=== PATIENT | male | born 1955 | race Hispanic/Latino ===

== ENCOUNTER 2017-07-21 18:06 | Inpatient (IN) | payer OTHER, SELFPAY ==
[2017-07-21] MEDS ORDERED: Ondansetron ODT 8 MG TAB ONE (18:44)
[2017-07-21 19:01] LABS: #Lymphocytes 1.3 thou/uL (1.20-3.40); #Monocytes 0.6 thou/uL (0.11-0.59); #Neutrophils 14.7 thou/uL (1.40-6.50); %Basophils 0.2 % (0.0-1.0); %Eosinophils 0.1 % (0.0-10.0); %Lymphocytes 7.8 % (21.0-51.0); %Monocytes 3.7 % (0.0-10.0); %Neutrophils 88.3 % (42.0-75.0); Hemoglobin 16.1 g/dL (14.0-18.0); Mean Corpuscular HGB CONC 35.7 g/dL (32.0-36.0); Mean Corpuscular Hemoglobin 32.3 pg (27.0-31.0); Mean Corpuscular Volume 90.4 fl (80.0-94.0); Mean Platelet Volume 9.6 fL (7.4-10.4); Platelet Count 139 thou/uL (130-400); RBC Distribution Width 11.4 % (11.5-14.5); Red Blood Cell (RBC) Count 4.97 mill/uL (4.70-6.10); White Blood Cell (WBC) Count 16.6 thou/uL (4.8-10.8)
--- NOTE | 2017-07-21 19:13 | RAD ---
CHEST ONE VIEW: HISTORY: Weakness. Vomiting. FINDINGS: Heart size and mediastinum are within normal limits. Lungs are clear of infiltrates. There is some linear scar atelectasis in the left base. IMPRESSION: No acute findings. POS: [facility]
[2017-07-21 19:24] LABS: ALT (SGPT) 13 U/L (8-55); AST (SGOT) 13 U/L (5-34); Albumin 4.6 g/dL (3.4-4.8); Alkaline Phosphatase 114 U/L (40-150); Anion Gap 19 mmol/L (10-20); BUN (Urea Nitrogen) 18 mg/dL (8.4-25.7); Bilirubin, Total 0.9 mg/dL (0.2-1.2); CK (CPK) 52 U/L (30-200); Calc. Creatinine Clearance 0 mL/min (70-130); Calcium 10.4 mg/dL (7.8-10.44); Carbon Dioxide 26 mmol/L (23-31); Chloride 95 mmol/L (98-107); Estimated GFR-MDRD 66; Globulin 3.3 g/dL (2.4-3.5); Glucose 421 mg/dL (80-115); Lipase 9 U/L (8-78); Potassium 4.2 mmol/L (3.5-5.1); Protein, Total 7.9 g/dL (5.8-8.1); Sodium 136 mmol/L (136-145)
[2017-07-21 19:26] LABS: Bilirubin Negative (Negative); Blood, Urine Negative (Negative); Clarity CLEAR (Clear); Glucose, Urine (Dipstick) >=1000 mg/dL (Negative); Leukocyte Negative (Negative); Nitrite Negative (Negative); Protein, Urine (Dipstick) Negative (Neg-Trace); Specific Gravity, Urine 1.037 (1.002-1.036); Urobilinogen 0.2 mg/dL (0.2-1.0)
[2017-07-21 19:27] LABS: CKMB 1.8 ng/mL (0-6.6); Troponin I Less than 0.010 ng/mL (< 0.028)
[2017-07-21 19:27] LABS: Base Excess-Venous 0.4 mmol/L (0 (+/- 2.5)); Bicarbonate (HCO3v) 26.4 mmol/L (1.0-85.0); CO2 Tension (PvCO2) 46.3 mmHg (41.0-51.0); Calcium, Ionized 1.09 mmol/L (1.12-1.32); Hemoglobin - Calc 16.1 g/dL (12.0-18.0); O2 Tension (PvO2) 28.7 mmHg (35.0-45.0); T. Carbon Dioxide 27.8 mmol/L (1.0-85.0); pH (Venous) 7.365 (7.35-7.45); vO2 Saturation-calc 51.5 % (94-98)
[2017-07-21] MEDS ORDERED: Insulin Regular 300 UNITS/3 ML VIAL ONE (19:31)
[2017-07-21] MEDS ORDERED: Morphine 4 MG/ML VIAL ONE (20:18)
[2017-07-21] MEDS ORDERED: Ondansetron HCl/PF 4 MG/2 ML Vial IVP PRN (22:33)
[2017-07-21] MEDS ORDERED: Ondansetron ODT 4 MG TAB SL PRN (22:33)
[2017-07-21] MEDS ORDERED: Sodium Chloride 0.9% 1,000 ML IV SCH ×2 (22:33→23:00)
[2017-07-21 22:46] VITALS: BMI 256270.4
[2017-07-21] MEDS ORDERED: hydrALAZINE 20 MG/ML VIAL SLOW IVP PRN (22:48)
[2017-07-21] MEDS ORDERED: Dextrose 50% Abboject 50 ML SYRINGE SLOW IVP PRN (22:48)
[2017-07-21] MEDS ORDERED: Insulin Regular 300 UNITS/3 ML VIAL SC PRN (22:48)
[2017-07-21] MEDS ORDERED: Dextrose 5% in Water 1,000 ML IV PRN (22:48)
[2017-07-21] MEDS ORDERED: Acetaminophen 325 MG TAB PO PRN (22:50)
[2017-07-21 22:53] LABS: Lactic Acid 2.2 mmol/L (0.5-2.2)
[2017-07-21] MEDS: HYDROcodone/Acetaminophen 5/325 mg Tablet PO PRN (22:57)
[2017-07-21] MEDS ORDERED: NPH, Human Insulin Isophane 300 UNIT/3 ML VIAL SC SCH (23:15)
[2017-07-21] MEDS: Sodium Chloride 0.9% 1,000 ML IV SCH (23:22)
[2017-07-21 23:28] LABS: Magnesium 1.7 mg/dL (1.6-2.6); Phosphorus 4.6 mg/dL (2.3-4.7)
[2017-07-22] MEDS ORDERED: Senokot 8.6 MG TAB PO PRN (01:03)
[2017-07-22] MEDS ORDERED: Calcium Carbonate 500 MG ChewTAB PO PRN (01:03)
[2017-07-22] MEDS ORDERED: Ondansetron HCl/PF 4 MG/2 ML Vial IVP PRN (01:03)
[2017-07-22] MEDS ORDERED: Mag-Al 1200 mg/1200 mg/30 ML UDCUP PO PRN (01:03)
[2017-07-22] MEDS ORDERED: hydrALAZINE 20 MG/ML VIAL SLOW IVP PRN (01:04)
--- NOTE | 2017-07-22 01:48 | HP ---
DATE OF ADMISSION: 07/21/2017 The patient was seen and examined on 07/21/2017. CHIEF COMPLAINT: Nausea, vomiting, and abdominal discomfort. HISTORY OF PRESENT ILLNESS: Patient is a 62-year-old male from [place] with diabetes mellitus type 2, currently out of insulin, presented to the hospital with nausea, vomiting, and abdominal discomfort that has been ongoing for the last 24 hours. He also felt generally weak and had some epigastric dis comfort that was more or less constant. He has been out of insulin for almost a week. The pain was 10/10 without any aggravating or relieving factor. He vomited a total of 4 times. No diarrhea, cons tipation, weight loss reported. He felt generally weak. In the emergency room, his blood sugar was 435 with lactic acid of 4.0. He received IV fluids in the emergency room. Ketones was added to his blood work that was 1.96. PAST MEDICAL HISTORY: 1. Diabetes mellitus type 2. 2. Hypertension. 3. Hyperlipidemia. PAST SURGICAL HISTORY: 1. Hernia repair. 2. Tonsillectomy. ALLERGIES: No known drug allergies. CURRENT HOME MEDICATIONS: Aspirin, enalapril/HCTZ, metformin, and pravastatin. The patient is curre ntly out of NPH insulin. He usually takes 30 units daily. SOCIAL HISTORY: Patient currently lives at home. No smoking, alcohol, no drug use. He is FULL CODE , makes his own decisions with the help of family. He is Swazi speaking only. The history was obt ained with the help of asl interpreter. FAMILY HISTORY: Negative for premature coronary artery disease, hypertension, and diabetes mellitus type 2. REVIEW OF SYSTEMS: The following complete review of systems was negative, unless otherwise mentioned in the HPI or below: Constitutional: Weight loss or gain, ability to conduct usual activities. Sk in: Rash, itching. Eyes: Double vision, pain. ENT/Mouth: Nose bleeding, neck stiffness, pain, te nderness. Cardiovascular: Palpitations, dyspnea on exertion, orthopnea. Respiratory: Shortness of breath, wheezing, cough, hemoptysis, fever or night sweats. Gastrointestinal: Poor appetite, abdom inal pain, heartburn, nausea, vomiting, constipation, or diarrhea. Genitourinary: Urgency, frequenc y, dysuria, nocturia. Musculoskeletal: Pain, swelling. Neurologic/Psychiatric: Anxiety, depressio n. Allergy/Immunologic: Skin rash, bleeding tendency. PHYSICAL EXAMINATION: VITAL SIGNS: In the emergency room showed temperature 97.4, respirations 20, pulse 76, blood pressur e 148/78 with O2 saturation 98% on room air. GENERAL: A 62-year-old male in no apparent distress. Abdominal pain, nausea, vomiting has been impr oving after IV fluids. HEENT: Head, atraumatic, normocephalic, sclerae are anicteric. Dry mucous membranes. No oral lesio n. NECK: Supple, no JVD appreciated. No carotid bruit. LUNGS: Clear to auscultation bilaterally. No wheezing, rales, or rhonchi. HEART: S1, S2 present. Regular rate and rhythm. No murmur, rubs, or gallops appreciated. ABDOMEN: Soft, mild tenderness over the epigastric region, no rebound, guarding, no costovertebral a ngle tenderness. EXTREMITIES: No edema or calf tenderness. NEUROLOGIC: Grossly nonfocal, moves all four extremities. PSYCHIATRY: Alert, awake, oriented x3. SKIN: Warm and dry. LYMPH NODES: No palpable lymph nodes in the neck. PERIPHERAL VASCULAR: Radial pulses palpable bilaterally. MUSCULOSKELETAL: No joint swelling or tenderness. LABORATORY AND X-RAY FINDINGS: WBC 16.6 with 88.3% neutrophils. Ketones 1.96. Urine specific gravity was 1.037 with ketones and glucosuria. Lactic acid 4.0 with blood glucose 435. BUN 18, creatinine 1.13. Chest x-ray by my review was negative for infiltrate or edema. EKG by my review showed sinus rhythm. Troponins were negative. IMPRESSION: 1. Nausea, vomiting with abdominal discomfort probably secondary to mild diabetic ketoacidosis. Ple ase note that patient is out of insulin for a week or so. We will continue IV fluids. We will start him on NPH 10 units twice a day. We will start him on full liquid diet and advance as tolerated. W e will repeat ketones and electrolytes in a.m. Please note that his lipase was normal. LFTs were no rmal. His abdominal examination was benign. 2. Diabetes mellitus type 2. We will hold metformin for now due to lactic acidosis. We will contin ue insulin sliding scale. 3. Metabolic acidosis secondary to elevated lactate and ketones. 4. Leukocytosis, unlikely to be infectious. 5. Dehydration. 6. Chronic kidney disease stage 2. 7. Hypertension. Will hold enalapril/HCTZ for now due to dehydration. We will add p.r.n. antihyper tensives. His last blood pressure was 112/55. 8. Hyperlipidemia. We will resume statins. 9. Disposition: Probably in 1-2 days based on his progress. Plan of care was discussed with the patient in detail. He stated understanding. PPIs will be added.
[2017-07-22] MEDS: HYDROcodone/Acetaminophen 5/325 mg Tablet PO PRN ×2 (05:39→11:31)
[2017-07-22] MEDS: Sodium Chloride 0.9% 1,000 ML IV SCH ×3 (05:39→20:24)
[2017-07-22 05:58] LABS: Albumin 3.6 g/dL (3.4-4.8); Anion Gap 8 mmol/L (10-20); BUN (Urea Nitrogen) 15 mg/dL (8.4-25.7); BUN/Creatinine Ratio 19.74; Calc. Creatinine Clearance 110 mL/min (70-130); Calcium 8.6 mg/dL (7.8-10.44); Carbon Dioxide 30 mmol/L (23-31); Chloride 105 mmol/L (98-107); Estimated GFR-MDRD Greater than 90; Glucose 204 mg/dL (80-115); Phosphorus 3.7 mg/dL (2.3-4.7); Potassium 4.1 mmol/L (3.5-5.1); Sodium 139 mmol/L (136-145)
[2017-07-22] MEDS: Insulin Regular 300 UNITS/3 ML VIAL SC PRN ×2 (06:34→17:17)
[2017-07-22] MEDS ORDERED: Loperamide HCl 2 MG CAP PO PRN (07:38)
[2017-07-22] MEDS ORDERED: Artificial Tears 18 DROP/0.9 ML EA EYE PRN (07:38)
[2017-07-22] MEDS ORDERED: Sodium Chloride 0.65% Nasal 44 ML BOT EA NARE PRN (07:38)
[2017-07-22] MEDS ORDERED: Chloraseptic Spray 180 ml Bottle PO PRN (07:38)
[2017-07-22] MEDS ORDERED: Temazepam 15 MG CAP PO PRN (07:38)
[2017-07-22] MEDS ORDERED: Diabetic Tussin 200 MG/10 ML UDCUP PO PRN (07:38)
[2017-07-22] MEDS ORDERED: Milk Of Magnesia 30 ML UDCUP PO PRN (07:38)
[2017-07-22] MEDS ORDERED: Loratadine 10 MG TAB PO PRN (07:38)
[2017-07-22] MEDS ORDERED: Eucerin (Mineral Oil/Petrolatum,White) 30 gm Jar TOP PRN (07:38)
[2017-07-22] MEDS ORDERED: Sodium Chloride 0.9% 1,000 ML IV SCH (07:45)
[2017-07-22] MEDS: Ondansetron ODT 4 MG TAB PO PRN (08:39)
[2017-07-22] MEDS ORDERED: NPH, Human Insulin Isophane 300 UNIT/3 ML VIAL SC SCH (09:00)
[2017-07-22] MEDS ORDERED: Famotidine 20 MG TAB PO SCH (09:00)
[2017-07-22] MEDS ORDERED: Aspirin 81 mg Enteric Coated Tablet PO SCH (09:00)
[2017-07-22] MEDS: Lisinopril 5 MG TAB PO SCH ×2 (09:01→20:19)
[2017-07-22] MEDS: Pravastatin Sodium 20 MG TAB PO SCH ×2 (09:03→20:19)
--- NOTE | 2017-07-22 09:48 | PDOC.PN ---
- Subjective Encounter Start Date: 07/22/17 Encounter Start Time: 09:10 -: old records requested/rev Patient seen and examined for hyperglycemia, c/o epigastric abdominal pain, no diarrhoea, no vomiting No overnight events - Objective Resuscitation Status: Resuscitation Status FULL:Full Resuscitation MAR Reviewed: Yes Vital Signs & Weight: Vital Signs (12 hours) Temp Pulse Resp BP BP Pulse Ox 07/22/17 09:01 95 148/77 H 07/22/17 07:31 98.5 F 95 18 148/77 H 95 07/22/17 05:51 98.2 F 98 16 112/66 94 L 07/22/17 00:16 98.2 F 107 H 18 112/55 L 94 L 07/21/17 23:56 98.1 F 96 18 94 L I&O: 07/21/17 07/22/17 07/23/17 06:59 06:59 06:59 Intake Total 1396 Balance 1396 Result Diagrams: 07/21/17 18:56 07/22/17 05:30 Additional Labs: Accuchecks 07/22/17 07/22/17 07/21/17 04:15 01:42 23:09 POC Glucose 224 H 267 H 297 H Phys Exam - Physical Examination Constitutional: NAD HEENT: PERRLA, moist MMs, sclera anicteric Neck: no JVD, supple Respiratory: no wheezing, no rales, no rhonchi Cardiovascular: RRR, no significant murmur, no rub Gastrointestinal: soft, no distention, positive bowel sounds epigastric abdominal discomfort Musculoskeletal: no edema, pulses present Neurological: non-focal, normal sensation, moves all 4 limbs Psychiatric: normal affect, A&O x 3 Skin: no rash, normal turgor Dx/Plan (1) Epigastric abdominal pain Code(s): R10.13 - EPIGASTRIC PAIN Status: Acute (2) Dehydration Code(s): E86.0 - DEHYDRATION Status: Acute (3) Hyperglycemia due to type 2 diabetes mellitus Code(s): E11.65 - TYPE 2 DIABETES MELLITUS WITH HYPERGLYCEMIA Status: Acute (4) Ketosis due to diabetes Code(s): E13.10 - OTH DIABETES MELLITUS WITH KETOACIDOSIS WITHOUT COMA Status : Resolved (5) Lactic acidosis Code(s): E87.2 - ACIDOSIS Status: Resolved (6) Leucocytosis Code(s): D72.829 - ELEVATED WHITE BLOOD CELL COUNT, UNSPECIFIED Status: Acute (7) Dyslipidemia Code(s): E78.5 - HYPERLIPIDEMIA, UNSPECIFIED Status: Chronic (8) Hypertension Code(s): I10 - ESSENTIAL (PRIMARY) HYPERTENSION Status: Chronic - Plan cont current plan of care, plan discussed w/ family * will get US RUQ * increase insulin 70/30, 15 unit SC BID * check HbA1c, lipid profile, TSH and labs tomorrow * reduce IVF * today will control diabetes and blood pressure * medication reviewed as below * symptomatic treatment * discussed with family bedside. Review of Systems - Review of Systems Constitutional: negative: fever, chills, sweats, weakness, malaise, other Eyes: negative: Pain, Vision Change, Conjunctivae Inflammation, Eyelid Inflammation, Redness, Other ENT: negative: Ear Pain, Ear Discharge, Nose Pain, Nose Discharge, Nose Congestion, Mouth Pain, Mouth Swelling, Throat Pain, Throat Swelling, Other Respiratory: negative: Cough, Dry, Shortness of Breath, Hemoptysis, SOB with Excertion, Pleuritic Pain, Sputum, Wheezing Cardiovascular: negative: chest pain, palpitations, orthopnea, paroxysmal nocturnal dyspnea, edema, light headedness, other Gastrointestinal: Abdominal Pain. negative: Nausea, Vomiting, Diarrhea, Constipation, Melena, Hematochezia, Other Genitourinary: negative: Dysuria, Frequency, Incontinence, Hematuria, Retention , Other Musculoskeletal: negative: Neck Pain, Shoulder Pain, Arm Pain, Back Pain, Hand Pain, Leg Pain, Foot Pain, Other Skin: negative: Rash, Lesions, Yoel, Bruising, Other - Medications/Allergies Allergies/Adverse Reactions: Allergies Allergy/AdvReac Type Severity Reaction Status Date / Time No Known Allergies Allergy Unverified 07/21/17 22:12 Medications: Current Medications Acetaminophen (Tylenol) 650 mg PO Q4H PRN PRN Reason: Headache/Fever or Mild Pain Al Hydroxide/Mg Hydroxide (Maalox) 30 ml PO Q6H PRN PRN Reason: Heartburn or Indigestion Artificial Tears (Tears Naturale) 0 drop EA EYE PRN PRN PRN Reason: Dry Eyes Aspirin (Ecotrin) 162 mg PO DAILY [facility] Last Admin: 07/22/17 09:02 Dose: 162 mg Calcium Carbonate (Tums) 1,000 mg PO Q4H PRN PRN Reason: Heartburn or Indigestion Dextrose/Water (Dextrose 50%) 25 gm SLOW IVP PRN PRN PRN Reason: Hypoglycemia Glucagon (Glucagon) 1 mg IM PRN PRN PRN Reason: Hypoglycemia Guaifenesin (Robitussin Sf) 200 mg PO Q4H PRN PRN Reason: Cough Hydralazine HCl (Apresoline) 10 mg SLOW IVP Q4H PRN PRN Reason: SBP Greater Than 180 Dextrose/Water (D5w) 1,000 mls @ 0 mls/hr IV .Q0M PRN; As Directed PRN Reason: Hypoglycemia Sodium Chloride (Normal Saline 0.9%) 1,000 mls @ 75 mls/hr IV .[id number] ON LICENSE OF [facility] Insulin Human NPH (Humulin N) 15 unit SC BID ON LICENSE OF [facility] Insulin Human Regular (Humulin R) 0 units SC .BEDTIME SLIDING SC PRN PRN Reason: Bedtime Correctional Scale Last Admin: 07/22/17 01:42 Dose: 3 unit Insulin Human Regular (Humulin R) 0 units SC .MODERATE SLIDING SC PRN PRN Reason: Moderate Correctional Scale Last Admin: 07/22/17 06:34 Dose: 4 unit Lisinopril (Zestril) 5 mg PO BID ON LICENSE OF [facility] Last Admin: 07/22/17 09:01 Dose: 5 mg Loperamide HCl (Imodium) 2 mg PO PRN PRN PRN Reason: Diarrhea/Loose Stools Loratadine (Claritin) 10 mg PO DAILYPRN PRN PRN Reason: Sinus Symptoms Magnesium Hydroxide (Milk Of Magnesium) 30 ml PO DAILYPRN PRN PRN Reason: Constipation Mineral Oil/White Petrolatum (Eucerin Cream) 0 gm TOP BIDPRN PRN PRN Reason: Dry Skin Ondansetron HCl (Zofran Odt) 4 mg PO Q6H PRN PRN Reason: Nausea/Vomiting Last Admin: 07/22/17 08:39 Dose: 4 mg Ondansetron HCl (Zofran) 4 mg IVP Q6H PRN PRN Reason: Nausea/Vomiting Pantoprazole Sodium (Protonix) 40 mg PO DAILY ON LICENSE OF [facility] Last Admin: 07/22/17 09:01 Dose: 40 mg Phenol (Chloraseptic [place] 180 Ml Bot) 0 ml PO PRN PRN PRN Reason: Sore Throat Pravastatin Sodium (Pravachol) 10 mg PO BID ON LICENSE OF [facility] Last Admin: 07/22/17 09:03 Dose: 10 mg Senna (Senokot) 2 tab PO HSPRN PRN PRN Reason: Constipation Sodium Chloride (Flush - Normal Saline) 10 ml IVF Q12HR ON LICENSE OF [facility] Last Admin: 07/22/17 09:04 Dose: 10 ml Sodium Chloride (Flush - Normal Saline) 10 ml IVF PRN PRN PRN Reason: Saline Flush Sodium Chloride ([place] Nasal [place] 0.65%) 0 ml EA NARE QIDPRN PRN PRN Reason: Nasal Congestion Temazepam (Restoril) 15 mg PO HSPRN PRN PRN Reason: Insomnia
[2017-07-22] MEDS ORDERED: Promethazine HCl 25 MG/ML VIAL IM PRN (11:46)
[2017-07-22] MEDS ORDERED: cefTRIAXone\\ROCEPHIN 1 GM in Sodium Chloride 0.9% 100 ML IVPB SCH (12:00)
[2017-07-22] MEDS ORDERED: Promethazine HCl 12.5 MG in Sodium Chloride 0.9% 50 ML IVPB PRN (12:33)
[2017-07-22 12:37] LABS: Band 12 % (5-11); Eosinophils 1 % (0-10); Hemoglobin 15.8 g/dL (14.0-18.0); Lymphocytes 5 % (21-51); MDiff Complete? YES; Mean Corpuscular HGB CONC 34.6 g/dL (32.0-36.0); Mean Corpuscular Hemoglobin 31.5 pg (27.0-31.0); Mean Corpuscular Volume 91.1 fl (80.0-94.0); Mean Platelet Volume 9.1 fL (7.4-10.4); Monocytes 3 % (0-10); Neutrophil 79 % (42-75); PLT Morphology Comment Appears Adequate; Platelet Count 148 thou/uL (130-400); RBC Distribution Width 11.5 % (11.5-14.5); Red Blood Cell (RBC) Count 5.01 mill/uL (4.70-6.10); White Blood Cell (WBC) Count 13.7 thou/uL (4.8-10.8)
[2017-07-22] MEDS: NPH, Human Insulin Isophane 300 UNIT/3 ML VIAL SC SCH ×2 (12:38→20:21)
[2017-07-22] MEDS: Morphine 4 MG/ML VIAL SLOW IVP PRN ×2 (12:39→21:28)
[2017-07-22 12:48] LABS: ALT (SGPT) 10 U/L (8-55); AST (SGOT) 13 U/L (5-34); Albumin 4.1 g/dL (3.4-4.8); Alkaline Phosphatase 89 U/L (40-150); Anion Gap 17 mmol/L (10-20); BUN (Urea Nitrogen) 15 mg/dL (8.4-25.7); Calc. Creatinine Clearance 108 mL/min (70-130); Calcium 9.3 mg/dL (7.8-10.44); Carbon Dioxide 24 mmol/L (23-31); Chloride 101 mmol/L (98-107); Estimated GFR-MDRD Greater than 90; Glucose 208 mg/dL (80-115); Potassium 3.9 mmol/L (3.5-5.1); Protein, Total 7.1 g/dL (5.8-8.1); Sodium 138 mmol/L (136-145)
--- NOTE | 2017-07-22 13:17 | ULT ---
RIGHT UPPER QUADRANT ULTRASOUND: INDICATIONS: Epigastric abdominal pain. COMPARISON: None. FINDINGS: There is a small amount of free fluid within the abdomen. The visualized aspects of the liver are un remarkable. Some mild gallbladder sludge is seen within the gallbladder. No sonographic Castillo sign is reported. The common bile duct measures 2 mm. The pancreas is obscured. The right kidney measu res 10.9 x 5 x 5.7 cm. No focal renal lesion or hydronephrosis is evident. IMPRESSION: 1. Mild ascites. 2. Mild gallbladder sludge. POS: [facility]
[2017-07-22] MEDS: cefTRIAXone\\ROCEPHIN 1 GM, Syringe 0.4 ML in Sterile Water 9.6 ML SLOW IVP SCH (14:36)
[2017-07-22] MEDS ORDERED: ISOVUE-370 76%-LOCM 1 ML ONE (15:00)
--- NOTE | 2017-07-22 18:11 | CT ---
CT ABDOMEN AND PELVIS WITH IV CONTRAST: 07/22/17 HISTORY: Epigastric pain with nausea and vomiting since yesterday. Bandemia. FINDINGS: There are tiny bilateral pleural effusions with associated passive atelectasis. There is a punctate n odular density at the posteromedial right lung base as well as in the right middle lobe which measure s less than 4 mm. Vascular calcifications seen in the abdominal aorta and iliac arteries. The liver, spleen, pancreas, bilateral adrenal glands, kidneys, and urinary bladder demonstrate a nor mal CT appearance. There are dilated loops of proximal small bowel measuring up to 3.3 cm in diameter which are fluid fi lled with air fluid levels present. The findings are suggestive of a high grade partial small bowel o bstruction as there are more normal and decompressed loops of small bowel further distally. There is mild mesenteric edema present at the level of the dilated loops of small bowel. No free intraperitoneal gas is present. There is area of layering increased densities seen involving some of the loops of small bowel, and some of the small bowel loops there is question of mild bowel w all thickening, however, this may be related to debris and particulate matter within the small bowel given this appearance. Small amount of free fluid is seen in the pelvis and adjacent to the liver and spleen. Vascular calcifications in the abdominal aorta involving the iliac arteries. IMPRESSION: 1. Evidence for high grade partial small bowel obstruction. 2. Small amount of free fluid in the abdomen and pelvis. 3. Tiny bilateral pleural effusions and passive atelectasis. 4. Above findings discussed with Asher, nurse in charge of the patient's hospital care on the [facility] floor on 07/22/17 at 1602 hours. POS: [facility]
[2017-07-22] MEDS: Pantoprazole 40 MG VIAL IVP SCH (20:22)
[2017-07-22 23:55] LABS: Troponin I 0.016 ng/mL (< 0.028)
[2017-07-23] MEDS: Morphine 4 MG/ML VIAL SLOW IVP PRN ×3 (03:28→12:57)
[2017-07-23] MEDS: Sodium Chloride 0.9% 1,000 ML IV SCH ×3 (05:10→20:51)
[2017-07-23 05:35] LABS: #Lymphocytes 1.1 thou/uL (1.20-3.40); #Monocytes 0.9 thou/uL (0.11-0.59); %Basophils 0.2 % (0.0-1.0); %Eosinophils 0.3 % (0.0-10.0); %Lymphocytes 13.6 % (21.0-51.0); %Monocytes 10.9 % (0.0-10.0); %Neutrophils 74.9 % (42.0-75.0); Hemoglobin 15.9 g/dL (14.0-18.0); Mean Corpuscular HGB CONC 34.4 g/dL (32.0-36.0); Mean Corpuscular Hemoglobin 31.8 pg (27.0-31.0); Mean Corpuscular Volume 92.4 fl (80.0-94.0); Mean Platelet Volume 9.5 fL (7.4-10.4); Platelet Count 148 thou/uL (130-400); RBC Distribution Width 11.7 % (11.5-14.5)
[2017-07-23 05:45] LABS: Hemoglobin A1c 9.9 % (4.0-6.0)
[2017-07-23 05:51] LABS: ALT (SGPT) 8 U/L (8-55); AST (SGOT) 11 U/L (5-34); Albumin 3.8 g/dL (3.4-4.8); Alkaline Phosphatase 68 U/L (40-150); Anion Gap 13 mmol/L (10-20); BUN (Urea Nitrogen) 17 mg/dL (8.4-25.7); Bilirubin, Total 0.8 mg/dL (0.2-1.2); Calc. Creatinine Clearance 108 mL/min (70-130); Calcium 8.5 mg/dL (7.8-10.44); Carbon Dioxide 26 mmol/L (23-31); Cardiac Risk 4.1 (Less than 4.5); Chloride 104 mmol/L (98-107); Cholesterol 122 mg/dl (< 200 Desired); Estimated GFR-MDRD Greater than 90; Globulin 2.8 g/dL (2.4-3.5); Glucose 223 mg/dL (80-115); HDL Cholesterol 30 mg/dL (>60 Neg Risk); LDL Cholesterol, Calculated 76 mg/dL; Potassium 3.7 mmol/L (3.5-5.1); Protein, Total 6.6 g/dL (5.8-8.1); Sodium 139 mmol/L (136-145); Triglycerides 78 mg/dL (Less than 150)
[2017-07-23] MEDS: Pantoprazole 40 MG VIAL IVP SCH ×2 (07:50→20:46)
[2017-07-23] MEDS: NPH, Human Insulin Isophane 300 UNIT/3 ML VIAL SC SCH ×2 (07:50→20:53)
--- NOTE | 2017-07-23 10:35 | PDOC.PN ---
- Subjective Encounter Start Date: 07/23/17 Encounter Start Time: 09:50 pt still has worsening of abdominal pain, he has transient relief in pain after NG tube yesterday, but this morning he is worse, no fever family bedside, he does not pass gas and he dose not have BM Patient seen and examined for SBO. No overnight events - Objective Resuscitation Status: Resuscitation Status FULL:Full Resuscitation MAR Reviewed: Yes Vital Signs & Weight: Vital Signs (12 hours) Temp Pulse Resp BP BP Pulse Ox 07/23/17 08:00 98.0 F 123 H 18 154/90 H 94 L 07/23/17 04:22 98.6 F 117 H 20 148/93 H 94 L Weight Weight 169 lb 1 oz I&O: 07/22/17 07/23/17 07/24/17 06:59 06:59 06:59 Intake Total 1396 1220 Output Total 3550 Balance 1396 -2330 Result Diagrams: 07/23/17 04:14 07/23/17 04:14 Additional Labs: Accuchecks 07/23/17 07/22/17 07/22/17 04:13 20:27 16:24 POC Glucose 219 H 237 H 236 H 07/22/17 12:09 POC Glucose 187 H Radiology Reviewed by me: Yes (small bowel xray, abdomen xray, CT abdomen) Phys Exam - Physical Examination Constitutional: NAD in pain HEENT: PERRLA, moist MMs, sclera anicteric NG tube+ Neck: no JVD, supple Respiratory: no wheezing, no rales, no rhonchi Cardiovascular: RRR, no significant murmur, no rub Gastrointestinal: soft distended, no bowel sound, diffuse discomfort Musculoskeletal: no edema, pulses present Neurological: non-focal, normal sensation, moves all 4 limbs Lymphatic: no nodes Psychiatric: normal affect, A&O x 3 Skin: no rash, normal turgor Dx/Plan (1) Partial small bowel obstruction Status: Acute (2) Epigastric abdominal pain Code(s): R10.13 - EPIGASTRIC PAIN Status: Acute (3) Dehydration Code(s): E86.0 - DEHYDRATION Status: Resolved (4) Hyperglycemia due to type 2 diabetes mellitus Code(s): E11.65 - TYPE 2 DIABETES MELLITUS WITH HYPERGLYCEMIA Status: Acute (5) Ketosis due to diabetes Code(s): E13.10 - OTH DIABETES MELLITUS WITH KETOACIDOSIS WITHOUT COMA Status : Resolved (6) Lactic acidosis Code(s): E87.2 - ACIDOSIS Status: Resolved (7) Leucocytosis Code(s): D72.829 - ELEVATED WHITE BLOOD CELL COUNT, UNSPECIFIED Status: Resolved (8) Dyslipidemia Code(s): E78.5 - HYPERLIPIDEMIA, UNSPECIFIED Status: Chronic (9) Hypertension Code(s): I10 - ESSENTIAL (PRIMARY) HYPERTENSION Status: Chronic - Plan cont current plan of care, plan discussed w/ family, continue antibiotics * seems like conservative treatment is not helping yet * will consult general surgery * will get xray abdomen and small bowel xray * he had previous hernia repair, sos suspecting adhesion related partial SBO * continue IVF * continue empiric rocephin and levaquin as his symptoms started after eating arana, he may has associated enteritis * continue protonix and continue IVF * medication reviewed as below * symptomatic treatment * discussed with family with medical certification specialist. Review of Systems - Review of Systems Constitutional: negative: fever, chills, sweats, weakness, malaise, other Eyes: negative: Pain, Vision Change, Conjunctivae Inflammation, Eyelid Inflammation, Redness, Other ENT: negative: Ear Pain, Ear Discharge, Nose Pain, Nose Discharge, Nose Congestion, Mouth Pain, Mouth Swelling, Throat Pain, Throat Swelling, Other Respiratory: negative: Cough, Dry, Shortness of Breath, Hemoptysis, SOB with Excertion, Pleuritic Pain, Sputum, Wheezing Cardiovascular: negative: chest pain, palpitations, orthopnea, paroxysmal nocturnal dyspnea, edema, light headedness, other Gastrointestinal: Nausea, Abdominal Pain. negative: Vomiting, Diarrhea, Constipation, Melena, Hematochezia, Other Genitourinary: negative: Dysuria, Frequency, Incontinence, Hematuria, Retention , Other Musculoskeletal: negative: Neck Pain, Shoulder Pain, Arm Pain, Back Pain, Hand Pain, Leg Pain, Foot Pain, Other Skin: negative: Rash, Lesions, Yoel, Bruising, Other - Medications/Allergies Allergies/Adverse Reactions: Allergies Allergy/AdvReac Type Severity Reaction Status Date / Time No Known Allergies Allergy Unverified 07/21/17 22:12 Medications: Current Medications Acetaminophen (Tylenol) 650 mg PO Q4H PRN PRN Reason: Headache/Fever or Mild Pain Hydrocodone Bitart/Acetaminophen ([place] 5/325) 1 tab PO Q4H PRN PRN Reason: Moderate to Severe Pain (6-10) Last Admin: 07/22/17 11:31 Dose: 1 tab Al Hydroxide/Mg Hydroxide (Maalox) 30 ml PO Q6H PRN PRN Reason: Heartburn or Indigestion Artificial Tears (Tears Naturale) 0 drop EA EYE PRN PRN PRN Reason: Dry Eyes Calcium Carbonate (Tums) 1,000 mg PO Q4H PRN PRN Reason: Heartburn or Indigestion Dextrose/Water (Dextrose 50%) 25 gm SLOW IVP PRN PRN PRN Reason: Hypoglycemia Glucagon (Glucagon) 1 mg IM PRN PRN PRN Reason: Hypoglycemia Guaifenesin (Robitussin Sf) 200 mg PO Q4H PRN PRN Reason: Cough Hydralazine HCl (Apresoline) 10 mg SLOW IVP Q4H PRN PRN Reason: SBP Greater Than 180 Dextrose/Water (D5w) 1,000 mls @ 0 mls/hr IV .Q0M PRN; As Directed PRN Reason: Hypoglycemia Levofloxacin 500 mg/ Device 100 mls @ 100 mls/hr IVPB 1300 [facility] Last Admin: 07/22/17 13:08 Dose: 100 mls Promethazine HCl 12.5 mg/ (Sodium Chloride) 50.5 mls @ 151.5 mls/hr IVPB Q6H PRN PRN Reason: Nausea/Vomiting Ceftriaxone Sodium 1 gm/ (Syringe 0.4 ml/ Sterile Water) 10 mls @ 120 mls/hr SLOW IVP 1400 [facility] Last Admin: 07/22/17 14:36 Dose: 10 mls Sodium Chloride (Normal Saline 0.9%) 1,000 mls @ 125 mls/hr IV .Q8H [facility] Last Admin: 07/23/17 05:10 Dose: 1,000 mls Insulin Human NPH (Humulin N) 15 unit SC BID [facility] Last Admin: 07/23/17 07:50 Dose: 15 unit Insulin Human Regular (Humulin R) 0 units SC .BEDTIME SLIDING SC PRN PRN Reason: Bedtime Correctional Scale Last Admin: 07/22/17 01:42 Dose: 3 unit Insulin Human Regular (Humulin R) 0 units SC .MODERATE SLIDING SC PRN PRN Reason: Moderate Correctional Scale Last Admin: 07/22/17 17:17 Dose: 4 unit Lisinopril (Zestril) 5 mg PO BID [facility] Last Admin: 07/22/17 20:19 Dose: 5 mg Loratadine (Claritin) 10 mg PO DAILYPRN PRN PRN Reason: Sinus Symptoms Metoprolol Tartrate (Lopressor) 25 mg PO BID [facility] Mineral Oil/White Petrolatum (Eucerin Cream) 0 gm TOP BIDPRN PRN PRN Reason: Dry Skin Morphine Sulfate (Morphine) 4 mg SLOW IVP Q4H PRN PRN Reason: Severe Pain (7-10) Last Admin: 07/23/17 07:55 Dose: 4 mg Ondansetron HCl (Zofran Odt) 4 mg PO Q6H PRN PRN Reason: Nausea/Vomiting Last Admin: 07/22/17 08:39 Dose: 4 mg Ondansetron HCl (Zofran) 4 mg IVP Q6H PRN PRN Reason: Nausea/Vomiting Last Admin: 07/22/17 12:47 Dose: 4 mg Pantoprazole Sodium (Protonix) 40 mg IVP Q12HR [facility] Last Admin: 07/23/17 07:50 Dose: 40 mg Phenol (Chloraseptic [place] 180 Ml Bot) 0 ml PO PRN PRN PRN Reason: Sore Throat Pravastatin Sodium (Pravachol) 10 mg PO BID [facility] Last Admin: 07/22/17 20:19 Dose: 10 mg Promethazine HCl (Phenergan) 12.5 mg IM Q6H PRN PRN Reason: Nausea/Vomiting Senna (Senokot) 2 tab PO HSPRN PRN PRN Reason: Constipation Sodium Chloride (Flush - Normal Saline) 10 ml IVF Q12HR [facility] Last Admin: 07/22/17 20:22 Dose: 10 ml Sodium Chloride (Flush - Normal Saline) 10 ml IVF PRN PRN PRN Reason: Saline Flush Sodium Chloride ([place] Nasal [place] 0.65%) 0 ml EA NARE QIDPRN PRN PRN Reason: Nasal Congestion Temazepam (Restoril) 15 mg PO HSPRN PRN PRN Reason: Insomnia
--- NOTE | 2017-07-23 11:46 | RAD ---
KUB SERIES: Indication: Abdominal pain, SBO (small bowel obstruction). FINDINGS: There is a coiled enteric catheter in the left upper quadrant. There is ectatic air filled small waylon l of the left upper quadrant. There is moderate retained fecal material in the colon. Upper abdomen i s partially excluded from view. IMPRESSION: 1. Ectatic air filled small bowel of the left upper quadrant. 2. Moderate retained fecal material in the colon. POS: [facility]
[2017-07-23] MEDS: Lisinopril 5 MG TAB PO SCH ×2 (12:58→20:46)
[2017-07-23] MEDS: Metoprolol Tartrate 25 MG TAB PO SCH ×2 (12:58→20:50)
--- NOTE | 2017-07-23 13:38 | RAD ---
SMALL BOWEL FOLLOW-THROUGH: Date: 07/23/17 CLINICAL HISTORY: Small bowel obstruction, abdominal pain. FINDINGS: There is dilatation of small bowel, contrast opacified, measuring greater than 5.0 cm. Contrast does traverse to the colon at approximately 2 hours. Retained material of the colon is present. Ther e is excreted contrast media within the urinary bladder. IMPRESSION: Dilated small bowel. Contrast does traverse to the level of the colon. This may relate to a low grade obstruction. POS: [facility]
[2017-07-23] MEDS: Pravastatin Sodium 20 MG TAB PO SCH ×2 (13:40→20:50)
[2017-07-23] MEDS: Insulin Regular 300 UNITS/3 ML VIAL SC PRN ×2 (13:43→17:54)
[2017-07-23] MEDS ORDERED: MD-Gastroview 120 ML BOT ONE (15:20)
[2017-07-23] MEDS: cefTRIAXone\\ROCEPHIN 1 GM, Syringe 0.4 ML in Sterile Water 9.6 ML SLOW IVP SCH (15:38)
--- NOTE | 2017-07-23 21:10 | CON ---
DATE OF CONSULTATION: 07/24/2017 DATE OF CONSULTATION: Possible partial small-bowel obstruction. REQUESTING PHYSICIAN: Dr. Radha Roman. HISTORY OF PRESENT ILLNESS: Patient is a 62-year-old man who presented to the emergency dep artment with 24 hours of nausea, vomiting, and abdominal pain. Patient underwent evaluation, examina tion and on his CAT scan, it was appeared that he may have partial small-bowel obstruction, at which time we were asked to evaluate the patient. The patient had a small bowel follow-through ordered and completed prior to my examination. The patient also had a NG tube placed in the emergency departmen t on his day of admission and I was seeing him on hospital day #2. At the time of my examination, th e patient had an NG tube in place that was putting out nonbilious fluids. He stated that his nausea and vomiting had resolved. He had had a very small bowel movement and passed some gas, but felt much better today than he did yesterday. ALLERGIES: None. CURRENT MEDICATIONS: Aspirin, hydrochlorothiazide, metformin, and pravastatin. Patient is also on N PH insulin, which he states that he is out of. PAST MEDICAL HISTORY: 1. Type 2 diabetes. 2. Hypertension. 3. Hyperlipidemia. PAST SURGICAL HISTORY: Hernia repair and tonsillectomy. SOCIAL HISTORY: Patient currently lives at home. He denies drug, alcohol, or tobacco use. FAMILY MEDICAL HISTORY: Coronary artery disease, hypertension, and diabetes. REVIEW OF SYSTEMS: A 10-point review of systems was negative, unless otherwise stated. PHYSICAL EXAMINATION: VITAL SIGNS: Temperature is 97.8, heart rate 101, blood pressure 107/69, respirations 18, oxygen sat uration is 94% on room air. GENERAL: Patient is resting comfortably in bed. He is alert, oriented, and appropriate. The patien t is Occitan-speaking only, we utilized the nurse as a toy packer. HEENT: Head is normocephalic, atraumatic. Eyes: Extraocular motion intact. PERRLA bilaterally. E ars are atraumatic without discharge. Nose are atraumatic without discharge. Oropharynx clear. NECK: Nontender. Trachea is midline. No JVD. CHEST: Clear to auscultation with good inspiratory and expiratory effort. HEART: Regular rate and rhythm. ABDOMEN: Has very minimal lower quadrant pain both right and left side. Hypoactive bowel sounds. EXTREMITIES: Neurovascularly intact x4. BACK: Nontender with no CVA tenderness. LABORATORY FINDINGS: White blood cell count 8.0, hemoglobin 15.9, hematocrit 46.2, platelets 148. S odium 139, potassium 3.7, chloride 104, CO2 of 26, BUN 17, creatinine 0.78, glucose 223. LFTs are u nremarkable. RADIOGRAPHIC FINDINGS: 1. CT of the abdomen and pelvis with IV contrast shows evidence for high-grade partial small-bowel o bstruction. 2. Small amount of free fluid in the abdomen and pelvis. 3. Tiny bilateral pleural effusions with passive atelectasis, small bowel follow-through shows dilat ed small bowel contrast does traverse to the level of the colon. This may relate to a low-grade obst ruction. ASSESSMENT: 1. Abdominal pain. 2. Nausea, vomiting, resolved. 3. Probable resolving low grade small-bowel obstruction. PLAN: Plan will be to discontinue his nasogastric tube and start clear liquids. Continue pain contr ol. Peripherally nonnarcotic pain control, pulmonary toilet, gastritis, mechanical DVT prophylaxis, and diabetes management per the primary team. We will reevaluate the patient in the morning sooner a s needed. The evaluation, examination, labs, and rads were discussed with Dr. Waters at the time of d ictation.
[2017-07-24] MEDS: Sodium Chloride 0.9% 1,000 ML IV SCH (05:48)
[2017-07-24] MEDS ORDERED: Bisacodyl 10 MG SUPP PR PRN (06:54)
[2017-07-24] MEDS: Pravastatin Sodium 20 MG TAB PO SCH ×2 (08:54→20:40)
[2017-07-24] MEDS: Lisinopril 5 MG TAB PO SCH ×2 (08:54→20:40)
[2017-07-24] MEDS: Polyethylene Glycol 3350 17 GM Packet PO SCH (08:56)
[2017-07-24] MEDS: Pantoprazole 40 MG VIAL IVP SCH ×2 (08:56→20:39)
[2017-07-24] MEDS: Metoprolol Tartrate 25 MG TAB PO SCH ×2 (08:56→20:39)
[2017-07-24] MEDS: NPH, Human Insulin Isophane 300 UNIT/3 ML VIAL SC SCH ×2 (08:57→21:45)
--- NOTE | 2017-07-24 09:51 | PDOC.PN ---
- Subjective Encounter Start Date: 07/24/17 Encounter Start Time: 09:20 pt had BM today, he feels better today, no fever Patient seen and examined for SBO. No new complaints. No overnight events - Objective Resuscitation Status: Resuscitation Status FULL:Full Resuscitation MAR Reviewed: Yes Vital Signs & Weight: Vital Signs (12 hours) Temp Pulse Resp BP BP Pulse Ox 07/24/17 08:54 107 H 151/81 H 07/24/17 07:45 98.4 F 107 H 18 94 L 07/24/17 04:00 98.5 F 100 20 142/79 H 94 L 07/24/17 00:00 99.1 F 97 20 112/76 94 L Weight Weight 169 lb 1.513 oz I&O: 07/23/17 07/24/17 07/25/17 06:59 06:59 06:59 Intake Total 1220 3350 Output Total 3550 200 Balance -2330 3150 Result Diagrams: 07/23/17 04:14 07/23/17 04:14 Additional Labs: Accuchecks 07/24/17 07/23/17 07/23/17 04:30 20:13 17:06 POC Glucose 169 H 230 H 214 H 07/23/17 12:56 POC Glucose 293 H Phys Exam - Physical Examination Constitutional: NAD HEENT: PERRLA, moist MMs, sclera anicteric Neck: no JVD, supple Respiratory: no wheezing, no rales, no rhonchi Cardiovascular: RRR, no significant murmur, no rub Gastrointestinal: soft, non-tender, no distention, positive bowel sounds Musculoskeletal: no edema, pulses present Neurological: non-focal, normal sensation, moves all 4 limbs Psychiatric: normal affect, A&O x 3 Skin: no rash, normal turgor Dx/Plan (1) Partial small bowel obstruction Status: Acute (2) Epigastric abdominal pain Code(s): R10.13 - EPIGASTRIC PAIN Status: Acute (3) Dehydration Code(s): E86.0 - DEHYDRATION Status: Resolved (4) Hyperglycemia due to type 2 diabetes mellitus Code(s): E11.65 - TYPE 2 DIABETES MELLITUS WITH HYPERGLYCEMIA Status: Acute (5) Ketosis due to diabetes Code(s): E13.10 - OTH DIABETES MELLITUS WITH KETOACIDOSIS WITHOUT COMA Status : Resolved (6) Lactic acidosis Code(s): E87.2 - ACIDOSIS Status: Resolved (7) Leucocytosis Code(s): D72.829 - ELEVATED WHITE BLOOD CELL COUNT, UNSPECIFIED Status: Resolved (8) Dyslipidemia Code(s): E78.5 - HYPERLIPIDEMIA, UNSPECIFIED Status: Chronic (9) Hypertension Code(s): I10 - ESSENTIAL (PRIMARY) HYPERTENSION Status: Chronic - Plan cont current plan of care, plan discussed w/ family, continue antibiotics * DC Rocephin * continue levaquin * today adjust dose of insulin * today advance diet as tolerated * add miralax * he has guiac positive, but Hb stable, suspected haemorroid, still advised to get outpt colonoscopy * expecting discharge tomorrow. * Dc IVF Review of Systems - Review of Systems Constitutional: negative: fever, chills, sweats, weakness, malaise, other Eyes: negative: Pain, Vision Change, Conjunctivae Inflammation, Eyelid Inflammation, Redness, Other ENT: negative: Ear Pain, Ear Discharge, Nose Pain, Nose Discharge, Nose Congestion, Mouth Pain, Mouth Swelling, Throat Pain, Throat Swelling, Other Respiratory: negative: Cough, Dry, Shortness of Breath, Hemoptysis, SOB with Excertion, Pleuritic Pain, Sputum, Wheezing Cardiovascular: negative: chest pain, palpitations, orthopnea, paroxysmal nocturnal dyspnea, edema, light headedness, other Gastrointestinal: Hematochezia. negative: Nausea, Vomiting, Abdominal Pain, Diarrhea, Constipation, Melena, Other Genitourinary: negative: Dysuria, Frequency, Incontinence, Hematuria, Retention , Other Musculoskeletal: negative: Neck Pain, Shoulder Pain, Arm Pain, Back Pain, Hand Pain, Leg Pain, Foot Pain, Other Skin: negative: Rash, Lesions, Yoel, Bruising, Other Neurological: negative: Weakness, Numbness, Incoordination, Change in Speech, Confusion, Seizures, Other - Medications/Allergies Allergies/Adverse Reactions: Allergies Allergy/AdvReac Type Severity Reaction Status Date / Time No Known Allergies Allergy Unverified 07/21/17 22:12 Medications: Current Medications Acetaminophen (Tylenol) 650 mg PO Q4H PRN PRN Reason: Headache/Fever or Mild Pain Hydrocodone Bitart/Acetaminophen ([place] 5/325) 1 tab PO Q4H PRN PRN Reason: Moderate to Severe Pain (6-10) Last Admin: 07/22/17 11:31 Dose: 1 tab Al Hydroxide/Mg Hydroxide (Maalox) 30 ml PO Q6H PRN PRN Reason: Heartburn or Indigestion Artificial Tears (Tears Naturale) 0 drop EA EYE PRN PRN PRN Reason: Dry Eyes Bisacodyl (Dulcolax) 10 mg FL Q8H PRN PRN Reason: Constipation Calcium Carbonate (Tums) 1,000 mg PO Q4H PRN PRN Reason: Heartburn or Indigestion Dextrose/Water (Dextrose 50%) 25 gm SLOW IVP PRN PRN PRN Reason: Hypoglycemia Glucagon (Glucagon) 1 mg IM PRN PRN PRN Reason: Hypoglycemia Guaifenesin (Robitussin Sf) 200 mg PO Q4H PRN PRN Reason: Cough Hydralazine HCl (Apresoline) 10 mg SLOW IVP Q4H PRN PRN Reason: SBP Greater Than 180 Dextrose/Water (D5w) 1,000 mls @ 0 mls/hr IV .Q0M PRN; As Directed PRN Reason: Hypoglycemia Levofloxacin 500 mg/ Device 100 mls @ 100 mls/hr IVPB 1300 [facility] Last Admin: 07/23/17 12:58 Dose: 100 mls Promethazine HCl 12.5 mg/ (Sodium Chloride) 50.5 mls @ 151.5 mls/hr IVPB Q6H PRN PRN Reason: Nausea/Vomiting Sodium Chloride (Normal Saline 0.9%) 1,000 mls @ 125 mls/hr IV .Q8H [facility] Last Admin: 07/24/17 05:48 Dose: 1,000 mls Insulin Human NPH (Humulin N) 15 unit SC BID [facility] Last Admin: 07/24/17 08:57 Dose: 15 unit Insulin Human Regular (Humulin R) 0 units SC .BEDTIME SLIDING SC PRN PRN Reason: Bedtime Correctional Scale Last Admin: 07/22/17 01:42 Dose: 3 unit Insulin Human Regular (Humulin R) 0 units SC .MODERATE SLIDING SC PRN PRN Reason: Moderate Correctional Scale Last Admin: 07/23/17 17:54 Dose: 4 unit Lisinopril (Zestril) 5 mg PO BID [facility] Last Admin: 07/24/17 08:54 Dose: 5 mg Loratadine (Claritin) 10 mg PO DAILYPRN PRN PRN Reason: Sinus Symptoms Metoprolol Tartrate (Lopressor) 25 mg PO BID [facility] Last Admin: 07/24/17 08:56 Dose: 25 mg Mineral Oil/White Petrolatum (Eucerin Cream) 0 gm TOP BIDPRN PRN PRN Reason: Dry Skin Morphine Sulfate (Morphine) 4 mg SLOW IVP Q4H PRN PRN Reason: Severe Pain (7-10) Last Admin: 07/23/17 12:57 Dose: 4 mg Ondansetron HCl (Zofran Odt) 4 mg PO Q6H PRN PRN Reason: Nausea/Vomiting Last Admin: 07/22/17 08:39 Dose: 4 mg Ondansetron HCl (Zofran) 4 mg IVP Q6H PRN PRN Reason: Nausea/Vomiting Last Admin: 07/22/17 12:47 Dose: 4 mg Pantoprazole Sodium (Protonix) 40 mg IVP Q12HR [facility] Last Admin: 07/24/17 08:56 Dose: 40 mg Phenol (Chloraseptic [place] 180 Ml Bot) 0 ml PO PRN PRN PRN Reason: Sore Throat Polyethylene Glycol (Miralax) 17 gm PO DAILY [facility] Last Admin: 07/24/17 08:56 Dose: 17 gm Pravastatin Sodium (Pravachol) 10 mg PO BID [facility] Last Admin: 07/24/17 08:54 Dose: 10 mg Promethazine HCl (Phenergan) 12.5 mg IM Q6H PRN PRN Reason: Nausea/Vomiting Senna (Senokot) 2 tab PO HSPRN PRN PRN Reason: Constipation Sodium Chloride (Flush - Normal Saline) 10 ml IVF Q12HR [facility] Last Admin: 07/24/17 09:07 Dose: 10 ml Sodium Chloride (Flush - Normal Saline) 10 ml IVF PRN PRN PRN Reason: Saline Flush Sodium Chloride ([place] Nasal [place] 0.65%) 0 ml EA NARE QIDPRN PRN PRN Reason: Nasal Congestion Temazepam (Restoril) 15 mg PO HSPRN PRN PRN Reason: Insomnia
[2017-07-24 10:33] LABS: #Eosinphils 0.1 thou/uL (0.0-0.7); #Lymphocytes 1.3 thou/uL (1.20-3.40); #Monocytes 0.9 thou/uL (0.11-0.59); #Neutrophils 6.8 thou/uL (1.40-6.50); %Basophils 0.1 % (0.0-1.0); %Eosinophils 0.6 % (0.0-10.0); %Lymphocytes 14.3 % (21.0-51.0); %Monocytes 9.7 % (0.0-10.0); %Neutrophils 75.3 % (42.0-75.0); Hemoglobin 14.5 g/dL (14.0-18.0); Mean Corpuscular HGB CONC 33.9 g/dL (32.0-36.0); Mean Corpuscular Hemoglobin 31.7 pg (27.0-31.0); Mean Corpuscular Volume 93.5 fl (80.0-94.0); Mean Platelet Volume 9.5 fL (7.4-10.4); Platelet Count 140 thou/uL (130-400); RBC Distribution Width 11.4 % (11.5-14.5); Red Blood Cell (RBC) Count 4.57 mill/uL (4.70-6.10)
[2017-07-24] MEDS: Insulin Regular 300 UNITS/3 ML VIAL SC PRN ×2 (12:04→16:37)
[2017-07-24] MEDS: Ondansetron ODT 4 MG TAB PO PRN (15:59)
[2017-07-24] MEDS ORDERED: Metoclopramide HCl 10 MG/2 ML VIAL IVP SCH (16:15)
[2017-07-24 17:09] LABS: ALT (SGPT) 8 U/L (8-55); AST (SGOT) 11 U/L (5-34); Albumin 3.7 g/dL (3.4-4.8); Alkaline Phosphatase 64 U/L (40-150); Anion Gap 6 mmol/L (10-20); BUN (Urea Nitrogen) 17 mg/dL (8.4-25.7); Bilirubin, Total 1.2 mg/dL (0.2-1.2); Calc. Creatinine Clearance 109 mL/min (70-130); Calcium 8.7 mg/dL (7.8-10.44); Carbon Dioxide 29 mmol/L (23-31); Chloride 102 mmol/L (98-107); Estimated GFR-MDRD Greater than 90; Glucose 233 mg/dL (80-115); Lipase 9 U/L (8-78); Magnesium 1.7 mg/dL (1.6-2.6); Potassium 3.3 mmol/L (3.5-5.1); Protein, Total 6.7 g/dL (5.8-8.1); Sodium 134 mmol/L (136-145)
--- NOTE | 2017-07-24 17:09 | RAD ---
SINGLE VIEW OF THE ABDOMEN 07/24/17 COMPARISON: 07/23/17 HISTORY: Followup. Small bowel obstruction. FINDINGS: An anterior view of the abdomen shows air filled loops of small bowel again seen in the mid abdomen. The small bowel follow through contrast is seen throughout the colon suggesting that the obstruction is incomplete as the enteric contrast is passed into the colon. The amount of contrast seen on the pr ior examination is significantly less in volume and a lot of the contrast was likely defecated from t he patient. IMPRESSION: Dilated loops of small bowel may be secondary to ileus or partial small bowel obstruction. POS: [facility]
[2017-07-24 17:13] LABS: Phosphorus 1.3 mg/dL (2.3-4.7)
[2017-07-24] MEDS: HYDROcodone/Acetaminophen 5/325 mg Tablet PO PRN ×2 (17:37→23:56)
[2017-07-24] MEDS ORDERED: Potassium Phosphate 30 MMOL in Sodium Chloride 0.9% 500 ML IVPB SCH (18:00)
[2017-07-24] MEDS: Morphine 4 MG/ML VIAL SLOW IVP PRN (20:39)
[2017-07-25 04:35] LABS: #Eosinphils 0.1 thou/uL (0.0-0.7); #Lymphocytes 1.3 thou/uL (1.20-3.40); #Monocytes 0.9 thou/uL (0.11-0.59); #Neutrophils 7.7 thou/uL (1.40-6.50); %Basophils 0.2 % (0.0-1.0); %Eosinophils 0.9 % (0.0-10.0); %Lymphocytes 12.7 % (21.0-51.0); %Monocytes 9.3 % (0.0-10.0); %Neutrophils 76.8 % (42.0-75.0); Hemoglobin 14.5 g/dL (14.0-18.0); Mean Corpuscular Hemoglobin 31.8 pg (27.0-31.0); Mean Corpuscular Volume 90.8 fl (80.0-94.0); Mean Platelet Volume 8.8 fL (7.4-10.4); Platelet Count 130 thou/uL (130-400); Red Blood Cell (RBC) Count 4.56 mill/uL (4.70-6.10)
[2017-07-25 05:03] LABS: Anion Gap 8 mmol/L (10-20); BUN (Urea Nitrogen) 9 mg/dL (8.4-25.7); Calc. Creatinine Clearance 136 mL/min (70-130); Calcium 8.4 mg/dL (7.8-10.44); Carbon Dioxide 30 mmol/L (23-31); Chloride 98 mmol/L (98-107); Estimated GFR-MDRD Greater than 90; Glucose 144 mg/dL (80-115); Magnesium 1.6 mg/dL (1.6-2.6); Phosphorus 2.8 mg/dL (2.3-4.7); Potassium 3.3 mmol/L (3.5-5.1); Sodium 133 mmol/L (136-145)
[2017-07-25] MEDS: Lisinopril 5 MG TAB PO SCH ×2 (08:15→21:28)
[2017-07-25] MEDS: Metoprolol Tartrate 25 MG TAB PO SCH ×2 (08:15→21:28)
[2017-07-25] MEDS: Pravastatin Sodium 20 MG TAB PO SCH ×2 (08:16→21:28)
[2017-07-25] MEDS: Pantoprazole 40 MG VIAL IVP SCH (08:17)
[2017-07-25] MEDS: NPH, Human Insulin Isophane 300 UNIT/3 ML VIAL SC SCH ×2 (08:19→21:30)
[2017-07-25] MEDS: Polyethylene Glycol 3350 17 GM Packet PO SCH (08:20)
[2017-07-25] MEDS: Morphine 4 MG/ML VIAL SLOW IVP PRN (08:24)
--- NOTE | 2017-07-25 13:25 | PRG ---
DATE OF SERVICE: 07/25/2017 SUBJECTIVE: Mr. Landa had a normal small-bowel follow through yesterday; however, he is still havi ng some bloating and some nausea overnight, feels better today. PHYSICAL EXAMINATION: VITAL SIGNS: He is afebrile. His vital signs are stable. ABDOMEN: His abdomen is soft, it is minimally distended. There are bowel sounds present. He has a lower midline incision that is healed without hernia right lower quadrant and groin incision that is healed without hernia. LABORATORY DATA: White blood cell count is 10. KUB today had some persistent dilated small intestine as well as retained contrast in his colon. ASSESSMENT: Small-bowel obstruction versus ileus, improved with normal small-bowel follow through . PLAN: Continue supportive care. We will allow clear liquids. Recommend repleting potassium is need ed.
--- NOTE | 2017-07-25 18:28 | PDOC.PN ---
- Subjective Encounter Start Date: 07/25/17 Encounter Start Time: 18:25 Subjective: f/u for ileus/partial SBO on clear liquids. Still feels full, distended and -: no BM today. No N/V. - Objective Resuscitation Status: Resuscitation Status FULL:Full Resuscitation MAR Reviewed: Yes Vital Signs & Weight: Vital Signs (12 hours) Temp Pulse Resp BP BP Pulse Ox 07/25/17 16:17 99.5 F 96 18 135/78 91 L 07/25/17 11:50 97.9 F 99 18 135/81 93 L 07/25/17 08:15 100 179/87 H 07/25/17 08:00 98.1 F 100 18 93 L 07/25/17 07:51 98.1 F 100 18 179/87 H 93 L Weight Weight 169 lb 5.04 oz I&O: 07/24/17 07/25/17 07/26/17 06:59 06:59 06:59 Intake Total 3350 3250 420 Output Total 200 300 Balance 3150 3250 120 Result Diagrams: 07/25/17 03:45 07/25/17 03:45 Additional Labs: Accuchecks 07/25/17 07/25/17 07/25/17 16:18 11:52 06:03 POC Glucose 197 H 159 H 166 H 07/24/17 20:54 POC Glucose 244 H Radiology Reviewed by me: Yes (ABD x-ray - partial SBO/ileus) Phys Exam - Physical Examination Constitutional: NAD HEENT: PERRLA, moist MMs, sclera anicteric, oral pharynx no lesions Neck: no nodes, no JVD, supple Respiratory: no wheezing, no rales, no rhonchi, clear to auscultation bilateral S1, S2 Cardiovascular: RRR, no significant murmur, no rub, gallop mild TTP in epigastric region mild distention, tympanic Gastrointestinal: soft, positive bowel sounds Musculoskeletal: no edema, pulses present Neurological: non-focal, normal sensation, moves all 4 limbs Psychiatric: normal affect, A&O x 3 Skin: no rash, normal turgor, cap refill <2 seconds Dx/Plan (1) Partial small bowel obstruction Status: Acute Comment: Slow improvement, Dulcolax supp, OOB/ambulate (2) Epigastric abdominal pain Code(s): R10.13 - EPIGASTRIC PAIN Status: Acute Comment: secondary to partial SBO, pain control, OOB ambulate (3) Hyperglycemia due to type 2 diabetes mellitus Code(s): E11.65 - TYPE 2 DIABETES MELLITUS WITH HYPERGLYCEMIA Status: Chronic Comment: ISS, NPH 15u sc BID, accuchecks achs (4) Hypertension Code(s): I10 - ESSENTIAL (PRIMARY) HYPERTENSION Status: Chronic Comment: Continue BP regimen, serial BP monitoring - Plan plan discussed w/ family, social welfare clerk, out of bed/ambulate, DVT proph w/SCDs Stable overall -: Dulcolax supp today -: ADAT -: Ambulate ad clay -: Limit pain medications * KCL replacement * AM lab: BMP * Likely home 48h
[2017-07-25] MEDS ORDERED: Bisacodyl 10 MG SUPP PR SCH (19:00)
[2017-07-26 05:17] LABS: Anion Gap 11 mmol/L (10-20); BUN (Urea Nitrogen) 9 mg/dL (8.4-25.7); Calc. Creatinine Clearance 126 mL/min (70-130); Calcium 8.9 mg/dL (7.8-10.44); Carbon Dioxide 29 mmol/L (23-31); Chloride 94 mmol/L (98-107); Estimated GFR-MDRD Greater than 90; Glucose 133 mg/dL (80-115); Potassium 3.1 mmol/L (3.5-5.1); Sodium 131 mmol/L (136-145)
[2017-07-26] MEDS: NPH, Human Insulin Isophane 300 UNIT/3 ML VIAL SC SCH ×2 (09:32→21:14)
[2017-07-26] MEDS: Pravastatin Sodium 20 MG TAB PO SCH (09:32)
[2017-07-26] MEDS: Lisinopril 5 MG TAB PO SCH ×2 (09:32→21:13)
[2017-07-26] MEDS: Metoprolol Tartrate 25 MG TAB PO SCH ×2 (09:32→21:14)
[2017-07-26] MEDS: Polyethylene Glycol 3350 17 GM Packet PO SCH (09:32)
[2017-07-26] MEDS ORDERED: Magnesium 2 GM/NS 0.9% 100 ML 2 GM in Premix Bag 1 BAG IVPB SCH (10:15)
[2017-07-26] MEDS: Insulin Regular 300 UNITS/3 ML VIAL SC PRN ×2 (11:44→16:53)
[2017-07-26] MEDS ORDERED: Potassium Chloride 20 MEQ TAB PO SCH ×2 (14:15→20:00)
[2017-07-26 14:32] LABS: ALT (SGPT) 131 U/L (8-55); AST (SGOT) 84 U/L (5-34); Albumin 3.3 g/dL (3.4-4.8); Alkaline Phosphatase 266 U/L (40-150); Bilirubin, Direct 7.3 mg/dL (0.1-0.3); Bilirubin, Total 9.7 mg/dL (0.2-1.2); Protein, Total 5.9 g/dL (5.8-8.1)
--- NOTE | 2017-07-26 14:50 | PRG ---
DATE OF SERVICE: 07/26/2017 SUBJECTIVE: This is hospital day # 6 for Mr. Landa. He was apparently admitted for concerns regar ding bowel distention, which was felt to be a partial small-bowel obstruction or an ileus. The etiol ogy of this was uncertain. When he initially presented, he had an elevated white blood cell count th at has normalized and has been normal for 3 days now. No labs have been obtained today in regards to this as of yesterday's white blood cell count was 10 with a fairly normal differential. His chemist enzymes ry profile today reveals low potassium level of 3.1. He has not had x-ray since the 10th (2 days ago ) at which time there was still some evidence of a small bowel dilatation. The patient still feels d istended. He has tolerated some liquids, but tells me he vomited at least once. He has been having liquid bowel movements. PHYSICAL EXAMINATION: VITAL SIGNS: He is afebrile and he has never been febrile. His pulse is 94-109. His blood pressure is normal at 121/76. HEENT: Eyes may have some degree of scleral icterus. LUNGS: Clear to auscultation. ABDOMEN: Seems mildly to moderately distended. It is hard to tell if this is normal for him or not. He does have bowel sounds, but they appear to be hypoactive. There is no definite tympany. There is no focal tenderness. EXTREMITIES: Unremarkable. ASSESSMENT: The patient who apparently does not feel well and feels bloated, has been only on clear liquids. A CT scan revealed evidence of some proximal dilated small bowel follow through on 07/24/19 18 was felt to be essentially normal with passage of contrast into the colon. There was noted to be some small bowel dilatation at that time, however. His only prior abdominal surgery was a small incision in his inferior abdomen from some infraumbilica l hernia I assume. It is not apparent why he would have an adhesive bowel obstruction or what proces s may be causing an ileus. We will recheck abdominal films. I will check liver function tests, maria teresa use of the concern regarding elevated bilirubin. I will advance him up to a full liquid diet since h e seems to be passing stool per rectum. I will also treat his hypokalemia with a couple doses of ora l potassium. Hopefully, whatever process is resolved and he could advance his diet and be discharged tomorrow. He does not appear to have any surgical indications.
--- NOTE | 2017-07-26 15:50 | RAD ---
UPRIGHT SUPINE IMAGES OF THE ABDOMEN THREE IMAGES TOTAL 07/26/17 FINDINGS: The dilated gas and fluid filled loops of small bowel within the central abdomen appears similar to t he comparison dated 07/24/17. Contrast remains within the region of colon and rectum. No suspicious calcifications are evident. No acute osseous abnormality is noted. IMPRESSION: Findings consistent with stable mild partial small bowel obstruction. POS: [facility]
[2017-07-26] MEDS ORDERED: Labetalol HCl 100 MG/20 ML VIAL SLOW IVP PRN (18:47)
[2017-07-26] MEDS: NS 0.9% w/ 20 MEQ KCL 1,000 ML/1,000 ML BAG IV SCH (21:11)
--- NOTE | 2017-07-26 22:37 | PDOC.PN ---
- Subjective Encounter Start Date: 07/26/17 Encounter Start Time: 18:00 Patient seen and examined for Abd pain/DKA. Intermittern Nausea with RUQ pain. No overnight events - Objective Resuscitation Status: Resuscitation Status FULL:Full Resuscitation MAR Reviewed: Yes Vital Signs & Weight: Vital Signs (12 hours) Temp Pulse Resp BP BP Pulse Ox 07/26/17 21:13 114 H 114/78 07/26/17 15:49 98.1 F 75 16 167/74 H 98 Weight Weight 169 lb 5.04 oz I&O: 07/25/17 07/26/17 07/27/17 06:59 06:59 06:59 Intake Total 3250 925 830 Output Total 450 Balance 3250 475 830 Result Diagrams: 07/27/17 04:39 07/27/17 04:39 Additional Labs: Accuchecks 07/26/17 07/26/17 07/26/17 21:10 15:48 11:33 POC Glucose 131 H 163 H 170 H 07/26/17 04:51 POC Glucose 131 H Laboratory Tests 07/26/17 07/26/17 04:27 04:27 Total Bilirubin 9.7 H Direct Bilirubin 7.3 H AST 84 H ALT 131 H Alkaline Phosphatase 266 H Lipase 204 H Radiology Reviewed by me: Yes (KUB - mild Partial SBO) Phys Exam - Physical Examination Constitutional: NAD Respiratory: no wheezing, no rales, no rhonchi, clear to auscultation bilateral Cardiovascular: RRR, no rub S1S2 +, no heaves/pulsations Gastrointestinal: soft, no distention, positive bowel sounds mild RUQ tend, No rebound/guarding Musculoskeletal: no edema Neurological: non-focal, normal sensation, moves all 4 limbs Dx/Plan (1) Partial small bowel obstruction Status: Acute (2) Acute pancreatitis Code(s): K85.90 - ACUTE PANCREATITIS WITHOUT NECROSIS OR INFECTION, UNSP Status: Acute (3) Abnormal LFTs Code(s): R94.5 - ABNORMAL RESULTS OF LIVER FUNCTION STUDIES Status: Acute (4) DKA (diabetic ketoacidoses) Code(s): E13.10 - OTH DIABETES MELLITUS WITH KETOACIDOSIS WITHOUT COMA Status : Resolved Qualifiers: Diabetes mellitus type: type 2 (5) Dyslipidemia Code(s): E78.5 - HYPERLIPIDEMIA, UNSPECIFIED Status: Chronic (6) Hypertension Code(s): I10 - ESSENTIAL (PRIMARY) HYPERTENSION Status: Chronic - Plan plan discussed w/ family, out of bed/ambulate, DVT proph w/SCDs JOEL [facility] -: Consult GI -: IVF, NPO -: Plan d/w Surgery -: LFTs/Lipase in AM Review of Systems - Review of Systems Constitutional: negative: fever, chills, sweats, weakness, malaise, other Respiratory: negative: Cough, Dry, Shortness of Breath, Hemoptysis, SOB with Excertion, Pleuritic Pain, Sputum, Wheezing Cardiovascular: negative: chest pain, palpitations, orthopnea, paroxysmal nocturnal dyspnea, edema, light headedness, other - Medications/Allergies Allergies/Adverse Reactions: Allergies Allergy/AdvReac Type Severity Reaction Status Date / Time No Known Allergies Allergy Unverified 07/21/17 22:12 Medications: Current Medications Hydrocodone Bitart/Acetaminophen ([place] 5/325) 1 tab PO Q4H PRN PRN Reason: Moderate to Severe Pain (6-10) Last Admin: 07/24/17 23:56 Dose: 1 tab Al Hydroxide/Mg Hydroxide (Maalox) 30 ml PO Q6H PRN PRN Reason: Heartburn or Indigestion Artificial Tears (Tears Naturale) 0 drop EA EYE PRN PRN PRN Reason: Dry Eyes Calcium Carbonate (Tums) 1,000 mg PO Q4H PRN PRN Reason: Heartburn or Indigestion Dextrose/Water (Dextrose 50%) 25 gm SLOW IVP PRN PRN PRN Reason: Hypoglycemia Glucagon (Glucagon) 1 mg IM PRN PRN PRN Reason: Hypoglycemia Guaifenesin (Robitussin Sf) 200 mg PO Q4H PRN PRN Reason: Cough Hydralazine HCl (Apresoline) 10 mg SLOW IVP Q4H PRN PRN Reason: SBP Greater Than 180 Dextrose/Water (D5w) 1,000 mls @ 0 mls/hr IV .Q0M PRN; As Directed PRN Reason: Hypoglycemia Promethazine HCl 12.5 mg/ (Sodium Chloride) 50.5 mls @ 151.5 mls/hr IVPB Q6H PRN PRN Reason: Nausea/Vomiting Potassium Chloride/Sodium Chloride ([place] 0.9% W/ 20 Meq Kcl) 1,000 ml in 1,000 mls @ 75 mls/hr IV .[id number] [facility] Last Admin: 07/26/17 21:11 Dose: 1,000 mls Insulin Human NPH (Humulin N) 10 unit SC BID [facility] Last Admin: 07/26/17 21:14 Dose: Not Given Insulin Human Regular (Humulin R) 0 units SC .BEDTIME SLIDING SC PRN PRN Reason: Bedtime Correctional Scale Last Admin: 07/22/17 01:42 Dose: 3 unit Insulin Human Regular (Humulin R) 0 units SC .MODERATE SLIDING SC PRN PRN Reason: Moderate Correctional Scale Last Admin: 07/26/17 16:53 Dose: 2 unit Labetalol HCl (Normodyne) 10 mg SLOW IVP Q4H PRN PRN Reason: Systolic BP > 180 Lisinopril (Zestril) 5 mg PO BID [facility] Last Admin: 07/26/17 21:13 Dose: 5 mg Loratadine (Claritin) 10 mg PO DAILYPRN PRN PRN Reason: Sinus Symptoms Metoprolol Tartrate (Lopressor) 25 mg PO BID [facility] Last Admin: 07/26/17 21:14 Dose: 25 mg Mineral Oil/White Petrolatum (Eucerin Cream) 0 gm TOP BIDPRN PRN PRN Reason: Dry Skin Morphine Sulfate (Morphine) 4 mg SLOW IVP Q4H PRN PRN Reason: Severe Pain (7-10) Last Admin: 07/25/17 08:24 Dose: 4 mg Ondansetron HCl (Zofran Odt) 4 mg PO Q6H PRN PRN Reason: Nausea/Vomiting Last Admin: 07/24/17 15:59 Dose: 4 mg Ondansetron HCl (Zofran) 4 mg IVP Q6H PRN PRN Reason: Nausea/Vomiting Last Admin: 07/22/17 12:47 Dose: 4 mg Pantoprazole Sodium (Protonix) 40 mg PO BID [facility] Last Admin: 07/26/17 21:13 Dose: 40 mg Phenol (Chloraseptic [place] 180 Ml Bot) 0 ml PO PRN PRN PRN Reason: Sore Throat Polyethylene Glycol (Miralax) 17 gm PO DAILY [facility] Last Admin: 07/26/17 09:32 Dose: 17 gm Promethazine HCl (Phenergan) 12.5 mg IM Q6H PRN PRN Reason: Nausea/Vomiting Last Admin: 07/26/17 06:27 Dose: 12.5 mg Senna (Senokot) 2 tab PO HSPRN PRN PRN Reason: Constipation Last Admin: 07/25/17 21:28 Dose: 2 tab Sodium Chloride (Flush - Normal Saline) 10 ml IVF Q12HR [facility] Last Admin: 07/26/17 21:14 Dose: 10 ml Sodium Chloride (Flush - Normal Saline) 10 ml IVF PRN PRN PRN Reason: Saline Flush Sodium Chloride ([place] Nasal [place] 0.65%) 0 ml EA NARE QIDPRN PRN PRN Reason: Nasal Congestion
[2017-07-27] MEDS: Ondansetron ODT 4 MG TAB PO PRN (02:18)
[2017-07-27 05:22] LABS: #Eosinphils 0.2 thou/uL (0.0-0.7); #Lymphocytes 1.2 thou/uL (1.20-3.40); #Monocytes 0.9 thou/uL (0.11-0.59); #Neutrophils 6.6 thou/uL (1.40-6.50); %Eosinophils 1.9 % (0.0-10.0); %Lymphocytes 13.9 % (21.0-51.0); %Monocytes 9.7 % (0.0-10.0); %Neutrophils 74.5 % (42.0-75.0); Hemoglobin 14.9 g/dL (14.0-18.0); Mean Corpuscular HGB CONC 34.5 g/dL (32.0-36.0); Mean Corpuscular Hemoglobin 31.6 pg (27.0-31.0); Mean Corpuscular Volume 91.7 fl (80.0-94.0); Mean Platelet Volume 8.9 fL (7.4-10.4); Platelet Count 159 thou/uL (130-400); RBC Distribution Width 11.3 % (11.5-14.5); Red Blood Cell (RBC) Count 4.72 mill/uL (4.70-6.10); White Blood Cell (WBC) Count 8.8 thou/uL (4.8-10.8)
[2017-07-27 06:02] LABS: ALT (SGPT) 91 U/L (8-55); AST (SGOT) 44 U/L (5-34); Albumin 3.3 g/dL (3.4-4.8); Alkaline Phosphatase 231 U/L (40-150); Anion Gap 15 mmol/L (10-20); BUN (Urea Nitrogen) 17 mg/dL (8.4-25.7); Bilirubin, Direct 4.2 mg/dL (0.1-0.3); Bilirubin, Total 5.6 mg/dL (0.2-1.2); Calc. Creatinine Clearance 117 mL/min (70-130); Calcium 9.1 mg/dL (7.8-10.44); Carbon Dioxide 25 mmol/L (23-31); Chloride 94 mmol/L (98-107); Estimated GFR-MDRD Greater than 90; Glucose 130 mg/dL (80-115); Lipase 175 U/L (8-78); Magnesium 1.9 mg/dL (1.6-2.6); Potassium 4.1 mmol/L (3.5-5.1); Protein, Total 6.1 g/dL (5.8-8.1); Sodium 130 mmol/L (136-145)
[2017-07-27] MEDS: Polyethylene Glycol 3350 17 GM Packet PO SCH (08:35)
[2017-07-27] MEDS: NPH, Human Insulin Isophane 300 UNIT/3 ML VIAL SC SCH ×2 (08:35→20:30)
[2017-07-27] MEDS: NS 0.9% w/ 20 MEQ KCL 1,000 ML/1,000 ML BAG IV SCH ×3 (08:39→18:15)
[2017-07-27] MEDS: Lisinopril 5 MG TAB PO SCH ×2 (08:40→20:32)
[2017-07-27] MEDS: Metoprolol Tartrate 25 MG TAB PO SCH ×2 (08:41→20:32)
--- NOTE | 2017-07-27 11:48 | PRG ---
DATE OF SERVICE: 07/27/2017 HISTORY OF PRESENT ILLNESS: Mr. Landa is hospital day #7 in his admission for partial small-bowel obstruction versus ileus. Although, his small bowel follow through revealed passage of contrast, he still had dilated small bowel on 07/23/2017. He has continued to have problems with the sensation of abdominal distention, discomfort, inadequate oral intake and therefore he has still been hospitalize d. When I came to see him yesterday, he was clearly jaundiced and I obtained laboratory studies, [facility] revealed that his bilirubin had risen from 1.2 on 07/24/2017, up to 9.7 yesterday on 07/26/2017. Follow up liver function test today reveal that his bilirubin has dropped down to 5.6. I also correc justin his hypokalemia with oral potassium and advanced him to a full liquid diet. He has continued to have bowel movements. He is apparently not vomiting, although his family members tell me he spits up some green stuff and I am not certain what that means. He tells me that he does feel better today. PHYSICAL EXAMINATION: VITAL SIGNS: He is afebrile, his pulse was 114 last night, but is back down to 97 today. Blood pres sure is 125/78. LUNGS: Clear to auscultation. CARDIAC: Regular rate and rhythm. ABDOMEN: Soft with no focal tenderness. He appears to be a little less distended than yesterday. B owel sounds are present but hypoactive. There is no tympanitic bowel sounds appreciable. LABORATORY STUDIES: His CBC is essentially normal with a white blood cell count of 8.8, hemoglobin o f 14.9. His electrolytes were regular with sodium that is only 130. This is down from 131 yesterday . His potassium is low at 3.1 yesterday and is up to 4.1 today. His bilirubin as mentioned is down from 9.7 yesterday to 5.6 today. His other liver function tests including AST, ALT, and alkaline ankur sphatase were all significantly elevated yesterday and are all improving today. His lipase level had been normal prior to yesterday and yesterday was 204. Today it is down to 175. ASSESSMENT: It is uncertain exactly what underlying event led to the marked abnormality in his liver function tests. Whatever the inciting cause was, however, it appears to be improving. Since he had a normal caliber common bile duct and no evidence of gallstones or gallbladder abnormality on his ul trasound and CT scan, I doubt that is the etiology. I recommended Gastroenterology consult yesterday and Dr. Wyman has been notified and will see the patient today. In regards to his abdominal/intesti nal abnormality, since he is tolerating a full liquid diet and having bowel movements, I would contin ue to observe this for now. If he has further symptoms, then he may require a repeat CT scan as he jarret fernandes did have proximal bowel dilatation and distal decompression when he was initially scanned on 0 07/22/2017. For now, I will continue to follow along as there do not appear to be any acute surgical indications.
[2017-07-27 16:17] LABS: Iron 40 ug/dL (65-175); Iron Binding Capacity, Total 116 mcg/dL (261-462)
[2017-07-27 16:37] LABS: HBCM Index 0.07 S/CO (0-0.79); Hep A IgM AB Non-Reactive (NonReactive); Hep A IgM S/CO 0.13 S/CO (0-0.79); Hep C IgG Ab Non-Reactive (NonReactive); Hep C Index 0.07 S/CO (0-0.79); Hepatitis B Core IGM Abs Non-Reactive (NonReactive)
[2017-07-27 18:12] LABS: HBSAg Index 0.23 S/CO (0-0.99); Hep B Surf Ag NonReactive S/CO (NonReactive)
--- NOTE | 2017-07-27 22:38 | CON ---
DATE OF CONSULTATION: 07/27/2017 CHIEF COMPLAINT: Abdominal pain. HISTORY OF PRESENT ILLNESS: Mr. Landa is a 62-year-old man who presented to the emergency room on 07/21/2017 with nausea, vomiting, abdominal pain and distention. He had a CT scan performed that sandrita wed small bowel dilation suggestive of a partial small-bowel obstruction. He had an ultrasound of th e gallbladder performed as well, which showed some mild ascites and sludge in the gallbladder and a 2 -mm bile duct. He later underwent a small bowel follow-through that showed the contrast to pass on t hrough to the colon. His abdominal pain has since improved. He has had no further nausea and vomiti ng. Yesterday, he was noted to appear jaundiced, so labs were obtained and his liver tests were note d to have had a sudden increase. They were normal for the initial few days of the admission and then suddenly the bilirubin and alkaline phosphatase increased with mild elevation of the transaminases. He has had no acute change in his symptoms to go with that. He denies taking any medications prior to admission. He has had no fever associated with this. PAST MEDICAL HISTORY: Significant for diabetes mellitus type 2, hypertension, and hyperlipidemia. PAST SURGICAL HISTORY: Hernia repair. He has a small incision below the umbilicus. This was done 3 0 years ago. He has had a tonsillectomy. FAMILY HISTORY: Negative for GI malignancies. SOCIAL HISTORY: No alcohol, tobacco or drugs. ALLERGIES: No known drug allergies. MEDICATIONS PRIOR TO ADMISSION: Aspirin, enalapril with hydrochlorothiazide, metformin, and pravasta tin. He has been on insulin previously. As noted above, the patient denied taking any over the coun ter medicines immediately before admission. MEDICATIONS HERE IN THE HOSPITAL: Include insulin sliding scale, ondansetron. He did receive sennos ides, lisinopril, hydrocodone with acetaminophen, morphine, metoprolol, polyethylene glycol, pantopra zole. REVIEW OF SYSTEMS: Negative x10 systems reviewed except as stated in history of present illness. PHYSICAL EXAMINATION: VITAL SIGNS: Temperature 98.6, pulse 90, blood pressure 126/76. GENERAL: He is in no acute distress. He is alert and oriented x3. EYES: Eyes have slight scleral icterus. Oropharynx is clear, without lesions. NECK: No cervical or supraclavicular lymphadenopathy. LUNGS: Clear to auscultation bilaterally. HEART: Regular rate and rhythm without murmurs. ABDOMEN: Soft, it is minimally distended. His bowel sounds are hypoactive. He is nontender. EXTREMITIES: No lower extremity edema. NEUROLOGIC: Cranial nerves are grossly intact. LABORATORY DATA: Sodium 130, creatinine 0.72. Bilirubin 5.6, this is down from 9.7 yesterday; [facility], on 07/24/2017, his bilirubin was 12 and 5, 7, 8, and 9 and the bilirubin was normal as well. AST was 44 today, 84 yesterday and 11 on the . His ALT was 131 yesterday and 91 today and on 2017, it was 8. His alkaline phosphatase is 231 today down from 266 yesterday, up from 64 on 018. Albumin 3.3, lipase 175 with an upper limit of normal of 78. IMPRESSION: 1. Partial small-bowel obstruction. This may have been due to an infectious enteritis. He does hav e a history of a hernia repair and adhesion is possible; however, there is no transition point identi ed. He is having bowel movements now mostly diarrhea today with four liquidy stools. There is no ongoing bowel obstruction at this point. We will need to send stool studies to evaluate the diarrhea now. 2. Abnormal liver function test. He has an acute cholestasis that occurred several days into the ho spitalization. I think this is likely unrelated to the bowel obstruction issue and given the cholest atic pattern to the liver tests, I would suspect a medication side effect causing drug induced liver injury. On review of his hospital medications; however, I did not see any obvious offending agents a nd that would be expected to cause this. We will continue to follow the trend of the liver tests and if they continue to improve, then no further intervention will be required. Biliary source of the c holestasis is not likely given a 2 mm bile duct on presentation and no stones in the gallbladder; how ever, there was some sludge noted and at this point, I will send lab work to evaluate further causes of liver disease and if his liver tests go up again, consider repeat imaging such as MRCP. RECOMMENDATIONS: 1. Additional labs to evaluate elevated liver tests. 2. Follow trend of the LFTs. 3. Consider advancing to clear liquid diet tomorrow. 4. Check stool studies since he has had diarrhea today.
--- NOTE | 2017-07-27 23:26 | PDOC.PN ---
- Subjective Encounter Start Date: 07/27/17 Encounter Start Time: 16:30 Patient seen and examined for SBO and other medical issues. Abd pain improving. No new complaints. No overnight events - Objective Resuscitation Status: Resuscitation Status FULL:Full Resuscitation MAR Reviewed: Yes Vital Signs & Weight: Vital Signs (12 hours) Temp Pulse Resp BP BP BP Pulse Ox 07/27/17 20:32 95 123/70 07/27/17 20:22 99.0 F 96 18 123/70 97 07/27/17 20:00 99.0 F 96 18 97 07/27/17 16:00 98.8 F 91 18 135/75 95 Weight Weight 169 lb 5.04 oz I&O: 07/26/17 07/27/17 07/28/17 06:59 06:59 06:59 Intake Total 925 1845 1300 Output Total 450 150 Balance 475 1695 1300 Result Diagrams: 07/28/17 04:22 07/28/17 04:22 Additional Labs: Accuchecks 07/27/17 07/27/17 07/27/17 20:24 16:40 11:29 POC Glucose 136 H 131 H 131 H 07/27/17 05:31 POC Glucose 125 H Phys Exam - Physical Examination Constitutional: NAD Respiratory: no wheezing, no rhonchi Cardiovascular: RRR, no rub Gastrointestinal: soft, non-tender, no distention, positive bowel sounds Musculoskeletal: no edema Neurological: moves all 4 limbs Psychiatric: A&O x 3 Dx/Plan (1) Partial small bowel obstruction Status: Acute (2) Acute pancreatitis Code(s): K85.90 - ACUTE PANCREATITIS WITHOUT NECROSIS OR INFECTION, UNSP Status: Suspected (3) Abnormal LFTs Code(s): R94.5 - ABNORMAL RESULTS OF LIVER FUNCTION STUDIES Status: Acute (4) DKA (diabetic ketoacidoses) Code(s): E13.10 - OTH DIABETES MELLITUS WITH KETOACIDOSIS WITHOUT COMA Status : Resolved Qualifiers: Diabetes mellitus type: type 2 (5) Dyslipidemia Code(s): E78.5 - HYPERLIPIDEMIA, UNSPECIFIED Status: Chronic (6) Hypertension Code(s): I10 - ESSENTIAL (PRIMARY) HYPERTENSION Status: Chronic - Plan cont current plan of care, out of bed/ambulate, DVT proph w/SCDs NPO for GI input -: Cont IV fluids -: Cont sliding scale with NPO -: Cont current meds as below Review of Systems - Review of Systems Respiratory: negative: Cough, Dry, Shortness of Breath, Hemoptysis, SOB with Excertion, Pleuritic Pain, Sputum, Wheezing Cardiovascular: negative: chest pain, palpitations, orthopnea, paroxysmal nocturnal dyspnea, edema, light headedness, other - Medications/Allergies Allergies/Adverse Reactions: Allergies Allergy/AdvReac Type Severity Reaction Status Date / Time No Known Allergies Allergy Unverified 07/21/17 22:12 Medications: Current Medications Hydrocodone Bitart/Acetaminophen ([place] 5/325) 1 tab PO Q4H PRN PRN Reason: Moderate to Severe Pain (6-10) Last Admin: 07/24/17 23:56 Dose: 1 tab Al Hydroxide/Mg Hydroxide (Maalox) 30 ml PO Q6H PRN PRN Reason: Heartburn or Indigestion Artificial Tears (Tears Naturale) 0 drop EA EYE PRN PRN PRN Reason: Dry Eyes Calcium Carbonate (Tums) 1,000 mg PO Q4H PRN PRN Reason: Heartburn or Indigestion Dextrose/Water (Dextrose 50%) 25 gm SLOW IVP PRN PRN PRN Reason: Hypoglycemia Glucagon (Glucagon) 1 mg IM PRN PRN PRN Reason: Hypoglycemia Guaifenesin (Robitussin Sf) 200 mg PO Q4H PRN PRN Reason: Cough Hydralazine HCl (Apresoline) 10 mg SLOW IVP Q4H PRN PRN Reason: SBP Greater Than 180 Dextrose/Water (D5w) 1,000 mls @ 0 mls/hr IV .Q0M PRN; As Directed PRN Reason: Hypoglycemia Promethazine HCl 12.5 mg/ (Sodium Chloride) 50.5 mls @ 151.5 mls/hr IVPB Q6H PRN PRN Reason: Nausea/Vomiting Potassium Chloride/Sodium Chloride (Ns 0.9% W/ 20 Meq Kcl) 1,000 ml in 1,000 mls @ 125 mls/hr IV .Q8H NIK Last Admin: 07/27/17 18:15 Dose: 1,000 mls Insulin Human NPH (Humulin N) 10 unit SC BID NIK Last Admin: 07/27/17 20:30 Dose: Not Given Insulin Human Regular (Humulin R) 0 units SC .BEDTIME SLIDING SC PRN PRN Reason: Bedtime Correctional Scale Last Admin: 07/22/17 01:42 Dose: 3 unit Insulin Human Regular (Humulin R) 0 units SC .MODERATE SLIDING SC PRN PRN Reason: Moderate Correctional Scale Last Admin: 07/26/17 16:53 Dose: 2 unit Labetalol HCl (Normodyne) 10 mg SLOW IVP Q4H PRN PRN Reason: Systolic BP > 180 Lisinopril (Zestril) 5 mg PO BID [facility] Last Admin: 07/27/17 20:32 Dose: 5 mg Loratadine (Claritin) 10 mg PO DAILYPRN PRN PRN Reason: Sinus Symptoms Metoprolol Tartrate (Lopressor) 25 mg PO BID [facility] Last Admin: 07/27/17 20:32 Dose: 25 mg Mineral Oil/White Petrolatum (Eucerin Cream) 0 gm TOP BIDPRN PRN PRN Reason: Dry Skin Morphine Sulfate (Morphine) 4 mg SLOW IVP Q4H PRN PRN Reason: Severe Pain (7-10) Last Admin: 07/25/17 08:24 Dose: 4 mg Ondansetron HCl (Zofran Odt) 4 mg PO Q6H PRN PRN Reason: Nausea/Vomiting Last Admin: 07/27/17 02:18 Dose: 4 mg Ondansetron HCl (Zofran) 4 mg IVP Q6H PRN PRN Reason: Nausea/Vomiting Last Admin: 07/22/17 12:47 Dose: 4 mg Pantoprazole Sodium (Protonix) 40 mg PO BID [facility] Last Admin: 07/27/17 20:31 Dose: 40 mg Phenol (Chloraseptic [place] 180 Ml Bot) 0 ml PO PRN PRN PRN Reason: Sore Throat Polyethylene Glycol (Miralax) 17 gm PO DAILY [facility] Last Admin: 07/27/17 08:35 Dose: Not Given Promethazine HCl (Phenergan) 12.5 mg IM Q6H PRN PRN Reason: Nausea/Vomiting Last Admin: 07/26/17 06:27 Dose: 12.5 mg Senna (Senokot) 2 tab PO HSPRN PRN PRN Reason: Constipation Last Admin: 07/25/17 21:28 Dose: 2 tab Sodium Chloride (Flush - Normal Saline) 10 ml IVF Q12HR [facility] Last Admin: 07/27/17 20:46 Dose: Not Given Sodium Chloride (Flush - Normal Saline) 10 ml IVF PRN PRN PRN Reason: Saline Flush Sodium Chloride ([place] Nasal [place] 0.65%) 0 ml EA NARE QIDPRN PRN PRN Reason: Nasal Congestion
[2017-07-28] MEDS: NS 0.9% w/ 20 MEQ KCL 1,000 ML/1,000 ML BAG IV SCH ×3 (02:16→17:53)
[2017-07-28 04:51] LABS: #Eosinphils 0.3 thou/uL (0.0-0.7); #Lymphocytes 1.1 thou/uL (1.20-3.40); %Basophils 0.4 % (0.0-1.0); %Eosinophils 3.6 % (0.0-10.0); %Lymphocytes 13.1 % (21.0-51.0); %Monocytes 11.9 % (0.0-10.0); Hemoglobin 13.3 g/dL (14.0-18.0); Mean Corpuscular HGB CONC 34.2 g/dL (32.0-36.0); Mean Corpuscular Hemoglobin 31.8 pg (27.0-31.0); Mean Corpuscular Volume 93.2 fl (80.0-94.0); Mean Platelet Volume 8.5 fL (7.4-10.4); Platelet Count 164 thou/uL (130-400); RBC Distribution Width 11.4 % (11.5-14.5); Red Blood Cell (RBC) Count 4.17 mill/uL (4.70-6.10); White Blood Cell (WBC) Count 8.5 thou/uL (4.8-10.8)
[2017-07-28 04:55] LABS: INR-International Normal Ratio 1.2
[2017-07-28 05:17] LABS: ALT (SGPT) 65 U/L (8-55); AST (SGOT) 33 U/L (5-34); Albumin 3.1 g/dL (3.4-4.8); Alkaline Phosphatase 185 U/L (40-150); Anion Gap 10 mmol/L (10-20); BUN (Urea Nitrogen) 12 mg/dL (8.4-25.7); Bilirubin, Total 4.2 mg/dL (0.2-1.2); Calc. Creatinine Clearance 109 mL/min (70-130); Calcium 8.2 mg/dL (7.8-10.44); Carbon Dioxide 24 mmol/L (23-31); Chloride 104 mmol/L (98-107); Estimated GFR-MDRD Greater than 90; Globulin 2.4 g/dL (2.4-3.5); Glucose 122 mg/dL (80-115); Potassium 4.3 mmol/L (3.5-5.1); Protein, Total 5.5 g/dL (5.8-8.1); Sodium 134 mmol/L (136-145)
[2017-07-28] MEDS: NPH, Human Insulin Isophane 300 UNIT/3 ML VIAL SC SCH ×2 (07:25→21:58)
[2017-07-28] MEDS: Polyethylene Glycol 3350 17 GM Packet PO SCH (07:25)
[2017-07-28] MEDS: Lisinopril 5 MG TAB PO SCH ×2 (07:48→20:12)
[2017-07-28] MEDS: Metoprolol Tartrate 25 MG TAB PO SCH ×2 (07:49→20:13)
[2017-07-28] MEDS: Insulin Regular 300 UNITS/3 ML VIAL SC PRN ×2 (12:25→17:53)
[2017-07-28 12:59] LABS: EliA Vaculitis New Method **** NEW METHOD ****; Mitochondrial Ab Less than 0.5 U/mL (<4 Negative)
--- NOTE | 2017-07-28 14:27 | PRG ---
DATE OF SERVICE: 07/28/2017 SUBJECTIVE: Mr. Landa feels much better today. He has no abdominal pain, but still has some abdom inal distention. He is tolerating clear liquids well. OBJECTIVE: VITAL SIGNS: Temperature 98.2, pulse 83, blood pressure is 146/73. GENERAL: He is in no acute distress. LUNGS: Clear to auscultation bilaterally. HEART: Regular rate and rhythm. ABDOMEN: Soft and nontender. Bowel sounds are present. EXTREMITIES: No lower extremity edema. LABORATORY DATA: White blood cell count 8.5, hemoglobin 13.3, platelets 164. Creatinine 0.77, bilir ubin 4.2, AST 33, ALT 65, alkaline phosphatase 185. Viral hepatitis screen was negative. Mitochondr ial antibody was negative. Iron saturation is not elevated. IMPRESSION: 1. Partial small-bowel obstruction is improving. 2. Abnormal liver function test. There was an abrupt rise in a primarily cholestatic pattern severa l days in the hospital stay. I suspect this was secondary to medication side effect. However, I do not see an obvious source otherwise. Blood work is negative for other causes of liver disease so far . RECOMMENDATIONS: 1. Advance to full liquid diet. 2. Continue follow trend of the liver tests.
--- NOTE | 2017-07-28 17:34 | EKG ---
Test Reason : Blood Pressure : / mmHG Vent. Rate : 120 BPM Atrial Rate : 120 BPM P-R Int : 144 ms QRS Dur : 096 ms QT Int : 324 ms P-R-T Axes : 046 -12 031 degrees QTc Int : 457 ms Sinus tachycardia Incomplete right bundle branch block Borderline ECG When compared with ECG of 21-JUL-2017 18:30, (Unconfirmed) Vent. rate has increased BY 47 BPM Incomplete right bundle branch block is now Present Confirmed by DR. Alba NAVARRO ([id number]) on 07/28/2017 5:34:29 PM Referred By: BROOK Confirmed By:DR. Alba NAVARRO
--- NOTE | 2017-07-28 18:33 | PRG ---
DATE OF SERVICE: 07/28/2017 SUBJECTIVE: Mr. Landa is feeling better. He is tolerating liquids without difficulty. He is havi ng occasional loose stool. No more vomiting. No more nausea. OBJECTIVE: ABDOMEN: Soft, nontender, nondistended. LABORATORY DATA: Liver tests are trending down slowly. ASSESSMENT: 1. Partial small-bowel obstruction of uncertain etiology, resolved. 2. Cholestasis with a trending down of liver function tests. PLAN: We will follow p.r.n. Recommend advance diet as tolerated. Follow up for liver test per [facility] roenterology.
--- NOTE | 2017-07-28 22:50 | PDOC.PN ---
- Subjective Encounter Start Date: 07/28/17 Encounter Start Time: 12:00 Patient seen and examined for SBO/DKA/Abn LFTs. No new complaints. No N/V. No overnight events - Objective Resuscitation Status: Resuscitation Status FULL:Full Resuscitation MAR Reviewed: Yes Vital Signs & Weight: Vital Signs (12 hours) Temp Pulse Resp BP BP Pulse Ox 07/28/17 20:12 94 143/80 H 07/28/17 20:00 98.9 F 94 18 143/80 H 95 Weight Weight 169 lb 5.04 oz I&O: 07/27/17 07/28/17 07/29/17 06:59 06:59 06:59 Intake Total 1845 2800 1844 Output Total 150 Balance 1695 2800 1844 Result Diagrams: 07/28/17 04:22 07/28/17 04:22 Additional Labs: Accuchecks 07/28/17 07/28/17 07/28/17 21:14 16:42 11:47 POC Glucose 161 H 170 H 171 H 07/28/17 07/28/17 07/28/17 08:04 04:40 00:21 POC Glucose 103 110 118 H Phys Exam - Physical Examination Constitutional: NAD Respiratory: no wheezing, no rhonchi Cardiovascular: RRR, no rub Gastrointestinal: soft, non-tender, positive bowel sounds Musculoskeletal: no edema Neurological: moves all 4 limbs Dx/Plan (1) Partial small bowel obstruction Status: Acute (2) Acute pancreatitis Code(s): K85.90 - ACUTE PANCREATITIS WITHOUT NECROSIS OR INFECTION, UNSP Status: Suspected (3) Abnormal LFTs Code(s): R94.5 - ABNORMAL RESULTS OF LIVER FUNCTION STUDIES Status: Acute (4) DKA (diabetic ketoacidoses) Code(s): E13.10 - OTH DIABETES MELLITUS WITH KETOACIDOSIS WITHOUT COMA Status : Resolved Qualifiers: Diabetes mellitus type: type 2 (5) Dyslipidemia Code(s): E78.5 - HYPERLIPIDEMIA, UNSPECIFIED Status: Chronic (6) Hypertension Code(s): I10 - ESSENTIAL (PRIMARY) HYPERTENSION Status: Chronic - Plan cont current plan of care, DVT proph w/SCDs Start Clear liqd diet -: AM labs -: Cont NPH with Sliding scale -: AM labs -: Cont to monitor Review of Systems - Review of Systems Respiratory: negative: Cough, Dry, Shortness of Breath, Hemoptysis, SOB with Excertion, Pleuritic Pain, Sputum, Wheezing Cardiovascular: negative: chest pain, palpitations, orthopnea, paroxysmal nocturnal dyspnea, edema, light headedness, other - Medications/Allergies Allergies/Adverse Reactions: Allergies Allergy/AdvReac Type Severity Reaction Status Date / Time No Known Allergies Allergy Unverified 07/21/17 22:12 Medications: Current Medications Hydrocodone Bitart/Acetaminophen ([place] 5/325) 1 tab PO Q4H PRN PRN Reason: Moderate to Severe Pain (6-10) Last Admin: 07/24/17 23:56 Dose: 1 tab Al Hydroxide/Mg Hydroxide (Maalox) 30 ml PO Q6H PRN PRN Reason: Heartburn or Indigestion Artificial Tears (Tears Naturale) 0 drop EA EYE PRN PRN PRN Reason: Dry Eyes Calcium Carbonate (Tums) 1,000 mg PO Q4H PRN PRN Reason: Heartburn or Indigestion Dextrose/Water (Dextrose 50%) 25 gm SLOW IVP PRN PRN PRN Reason: Hypoglycemia Glucagon (Glucagon) 1 mg IM PRN PRN PRN Reason: Hypoglycemia Guaifenesin (Robitussin Sf) 200 mg PO Q4H PRN PRN Reason: Cough Hydralazine HCl (Apresoline) 10 mg SLOW IVP Q4H PRN PRN Reason: SBP Greater Than 180 Dextrose/Water (D5w) 1,000 mls @ 0 mls/hr IV .Q0M PRN; As Directed PRN Reason: Hypoglycemia Promethazine HCl 12.5 mg/ (Sodium Chloride) 50.5 mls @ 151.5 mls/hr IVPB Q6H PRN PRN Reason: Nausea/Vomiting Potassium Chloride/Sodium Chloride (Ns 0.9% W/ 20 Meq Kcl) 1,000 ml in 1,000 mls @ 125 mls/hr IV .Q8H NIK Last Admin: 07/28/17 17:53 Dose: 1,000 mls Insulin Human NPH (Humulin N) 10 unit SC BID NIK Last Admin: 07/28/17 21:58 Dose: Not Given Insulin Human Regular (Humulin R) 0 units SC .BEDTIME SLIDING SC PRN PRN Reason: Bedtime Correctional Scale Last Admin: 07/22/17 01:42 Dose: 3 unit Insulin Human Regular (Humulin R) 0 units SC .MODERATE SLIDING SC PRN PRN Reason: Moderate Correctional Scale Last Admin: 07/28/17 17:53 Dose: 2 unit Labetalol HCl (Normodyne) 10 mg SLOW IVP Q4H PRN PRN Reason: Systolic BP > 180 Lisinopril (Zestril) 5 mg PO BID [facility] Last Admin: 07/28/17 20:12 Dose: 5 mg Loratadine (Claritin) 10 mg PO DAILYPRN PRN PRN Reason: Sinus Symptoms Metoprolol Tartrate (Lopressor) 25 mg PO BID [facility] Last Admin: 07/28/17 20:13 Dose: 25 mg Mineral Oil/White Petrolatum (Eucerin Cream) 0 gm TOP BIDPRN PRN PRN Reason: Dry Skin Morphine Sulfate (Morphine) 4 mg SLOW IVP Q4H PRN PRN Reason: Severe Pain (7-10) Last Admin: 07/25/17 08:24 Dose: 4 mg Ondansetron HCl (Zofran Odt) 4 mg PO Q6H PRN PRN Reason: Nausea/Vomiting Last Admin: 07/27/17 02:18 Dose: 4 mg Ondansetron HCl (Zofran) 4 mg IVP Q6H PRN PRN Reason: Nausea/Vomiting Last Admin: 07/22/17 12:47 Dose: 4 mg Pantoprazole Sodium (Protonix) 40 mg PO BID [facility] Last Admin: 07/28/17 20:13 Dose: 40 mg Phenol (Chloraseptic [place] 180 Ml Bot) 0 ml PO PRN PRN PRN Reason: Sore Throat Polyethylene Glycol (Miralax) 17 gm PO DAILY [facility] Last Admin: 07/28/17 07:25 Dose: Not Given Promethazine HCl (Phenergan) 12.5 mg IM Q6H PRN PRN Reason: Nausea/Vomiting Last Admin: 07/26/17 06:27 Dose: 12.5 mg Senna (Senokot) 2 tab PO HSPRN PRN PRN Reason: Constipation Last Admin: 07/25/17 21:28 Dose: 2 tab Sodium Chloride (Flush - Normal Saline) 10 ml IVF Q12HR [facility] Last Admin: 07/28/17 20:14 Dose: Not Given Sodium Chloride (Flush - Normal Saline) 10 ml IVF PRN PRN PRN Reason: Saline Flush Sodium Chloride ([place] Nasal [place] 0.65%) 0 ml EA NARE QIDPRN PRN PRN Reason: Nasal Congestion
[2017-07-29] MEDS: NS 0.9% w/ 20 MEQ KCL 1,000 ML/1,000 ML BAG IV SCH ×2 (01:09→08:24)
[2017-07-29] MEDS: NPH, Human Insulin Isophane 300 UNIT/3 ML VIAL SC SCH ×3 (08:19→20:39)
[2017-07-29] MEDS: Lisinopril 5 MG TAB PO SCH ×2 (08:20→20:38)
[2017-07-29] MEDS: Polyethylene Glycol 3350 17 GM Packet PO SCH (08:20)
[2017-07-29] MEDS: Metoprolol Tartrate 25 MG TAB PO SCH ×2 (08:21→20:38)
[2017-07-29] MEDS: Insulin Regular 300 UNITS/3 ML VIAL SC PRN (12:15)
--- NOTE | 2017-07-29 12:25 | PRG ---
DATE OF SERVICE: 07/29/2017 SUBJECTIVE: Mr. Landa is feeling better. He is tolerating clear liquids well. He has no further abdominal pain. OBJECTIVE: VITAL SIGNS: Temperature 98.6, pulse 77, blood pressure 126/78. GENERAL: His sclerae appear nonicteric. LUNGS: Clear to auscultation bilaterally. HEART: Regular rate and rhythm. ABDOMEN: Soft, nontender, nondistended. Bowel sounds are present. EXTREMITIES: No lower extremity edema. IMPRESSION: 1. Partial small-bowel obstruction, resolved. He does have a history of hernia surgery, but no ongo ing evidence of obstruction now. 2. Cholestatic liver tests. The liver tests were normal for several days and then spiked. This sug gests more acute process such as a drug-induced liver injury. Ischemic hepatitis would be a consider ation. However, this typically causes a marked transaminitis rather than cholestasis and therefore i t is less likely. RECOMMENDATIONS: 1. We will try a low fiber diet. 2. Recheck liver test tomorrow morning.
[2017-07-29 12:57] LABS: ALT (SGPT) 85 U/L (8-55); AST (SGOT) 74 U/L (5-34); Albumin 3.4 g/dL (3.4-4.8); Alkaline Phosphatase 244 U/L (40-150); Anion Gap 8 mmol/L (10-20); BUN (Urea Nitrogen) 4 mg/dL (8.4-25.7); Calc. Creatinine Clearance 117 mL/min (70-130); Calcium 8.8 mg/dL (7.8-10.44); Carbon Dioxide 30 mmol/L (23-31); Chloride 100 mmol/L (98-107); Estimated GFR-MDRD Greater than 90; Globulin 2.9 g/dL (2.4-3.5); Glucose 185 mg/dL (80-115); Lipase 82 U/L (8-78); Potassium 4.6 mmol/L (3.5-5.1); Protein, Total 6.3 g/dL (5.8-8.1); Sodium 133 mmol/L (136-145)
--- NOTE | 2017-07-29 18:17 | PDOC.PN ---
- Subjective Encounter Start Date: 07/29/17 Encounter Start Time: 13:30 Patient seen and examined for SBO/DKA. Denies any N/V/abd pain. No new complaints. No overnight events - Objective Resuscitation Status: Resuscitation Status FULL:Full Resuscitation MAR Reviewed: Yes Vital Signs & Weight: Vital Signs (12 hours) Temp Pulse Resp BP BP Pulse Ox 07/29/17 11:27 98.6 F 77 16 126/78 95 07/29/17 08:20 84 130/73 07/29/17 08:00 98.6 F 84 16 94 L 07/29/17 07:45 98.6 F 84 16 130/73 94 L Weight Weight 169 lb 5.04 oz I&O: 07/28/17 07/29/17 07/30/17 06:59 06:59 06:59 Intake Total 2800 3519 1473 Balance 2800 3519 1473 Result Diagrams: 07/30/17 02:02 07/30/17 02:02 Additional Labs: Accuchecks 07/29/17 07/29/17 07/29/17 16:16 11:32 08:33 POC Glucose 140 H 182 H 219 H 07/29/17 07/29/17 07/28/17 05:58 00:37 21:14 POC Glucose 120 H 128 H 161 H Phys Exam - Physical Examination Constitutional: NAD Respiratory: no wheezing, no rhonchi Cardiovascular: RRR, no rub Gastrointestinal: soft, non-tender, positive bowel sounds Musculoskeletal: no edema Neurological: moves all 4 limbs Dx/Plan (1) Partial small bowel obstruction Status: Acute Comment: improving (2) Acute pancreatitis Code(s): K85.90 - ACUTE PANCREATITIS WITHOUT NECROSIS OR INFECTION, UNSP Status: Suspected Comment: improving (3) Abnormal LFTs Code(s): R94.5 - ABNORMAL RESULTS OF LIVER FUNCTION STUDIES Status: Acute Comment: LFTs improving (4) DKA (diabetic ketoacidoses) Code(s): E13.10 - OTH DIABETES MELLITUS WITH KETOACIDOSIS WITHOUT COMA Status : Resolved Qualifiers: Diabetes mellitus type: type 2 (5) Dyslipidemia Code(s): E78.5 - HYPERLIPIDEMIA, UNSPECIFIED Status: Chronic (6) Hypertension Code(s): I10 - ESSENTIAL (PRIMARY) HYPERTENSION Status: Chronic - Plan cont current plan of care, out of bed/ambulate, DVT proph w/SCDs LFTs in AM -: Cont low fiber diet -: Cont NPH with sliding scale -: Cont current meds as below -: DC planning in 24 -48 hr if stable Review of Systems - Review of Systems Respiratory: negative: Cough, Dry, Shortness of Breath, Hemoptysis, SOB with Excertion, Pleuritic Pain, Sputum, Wheezing Cardiovascular: negative: chest pain, palpitations, orthopnea, paroxysmal nocturnal dyspnea, edema, light headedness, other - Medications/Allergies Allergies/Adverse Reactions: Allergies Allergy/AdvReac Type Severity Reaction Status Date / Time No Known Allergies Allergy Unverified 07/21/17 22:12 Medications: Current Medications Al Hydroxide/Mg Hydroxide (Maalox) 30 ml PO Q6H PRN PRN Reason: Heartburn or Indigestion Artificial Tears (Tears Naturale) 0 drop EA EYE PRN PRN PRN Reason: Dry Eyes Calcium Carbonate (Tums) 1,000 mg PO Q4H PRN PRN Reason: Heartburn or Indigestion Dextrose/Water (Dextrose 50%) 25 gm SLOW IVP PRN PRN PRN Reason: Hypoglycemia Glucagon (Glucagon) 1 mg IM PRN PRN PRN Reason: Hypoglycemia Guaifenesin (Robitussin Sf) 200 mg PO Q4H PRN PRN Reason: Cough Hydralazine HCl (Apresoline) 10 mg SLOW IVP Q4H PRN PRN Reason: SBP Greater Than 180 Dextrose/Water (D5w) 1,000 mls @ 0 mls/hr IV .Q0M PRN; As Directed PRN Reason: Hypoglycemia Promethazine HCl 12.5 mg/ (Sodium Chloride) 50.5 mls @ 151.5 mls/hr IVPB Q6H PRN PRN Reason: Nausea/Vomiting Insulin Human NPH (Humulin N) 10 unit SC BID NIK Last Admin: 07/29/17 09:27 Dose: 10 unit Insulin Human Regular (Humulin R) 0 units SC .BEDTIME SLIDING SC PRN PRN Reason: Bedtime Correctional Scale Last Admin: 07/22/17 01:42 Dose: 3 unit Insulin Human Regular (Humulin R) 0 units SC .MODERATE SLIDING SC PRN PRN Reason: Moderate Correctional Scale Last Admin: 07/29/17 12:15 Dose: 2 unit Labetalol HCl (Normodyne) 10 mg SLOW IVP Q4H PRN PRN Reason: Systolic BP > 180 Lisinopril (Zestril) 5 mg PO BID [facility] Last Admin: 07/29/17 08:20 Dose: 5 mg Loratadine (Claritin) 10 mg PO DAILYPRN PRN PRN Reason: Sinus Symptoms Metoprolol Tartrate (Lopressor) 25 mg PO BID [facility] Last Admin: 07/29/17 08:21 Dose: 25 mg Mineral Oil/White Petrolatum (Eucerin Cream) 0 gm TOP BIDPRN PRN PRN Reason: Dry Skin Ondansetron HCl (Zofran Odt) 4 mg PO Q6H PRN PRN Reason: Nausea/Vomiting Last Admin: 07/27/17 02:18 Dose: 4 mg Ondansetron HCl (Zofran) 4 mg IVP Q6H PRN PRN Reason: Nausea/Vomiting Last Admin: 07/22/17 12:47 Dose: 4 mg Pantoprazole Sodium (Protonix) 40 mg PO DAILY [facility] Phenol (Chloraseptic [place] 180 Ml Bot) 0 ml PO PRN PRN PRN Reason: Sore Throat Promethazine HCl (Phenergan) 12.5 mg IM Q6H PRN PRN Reason: Nausea/Vomiting Last Admin: 07/26/17 06:27 Dose: 12.5 mg Senna (Senokot) 2 tab PO HSPRN PRN PRN Reason: Constipation Last Admin: 07/25/17 21:28 Dose: 2 tab Sodium Chloride (Flush - Normal Saline) 10 ml IVF Q12HR [facility] Last Admin: 07/29/17 08:20 Dose: Not Given Sodium Chloride (Flush - Normal Saline) 10 ml IVF PRN PRN PRN Reason: Saline Flush Sodium Chloride (Esmeralda Nasal [place]wood 0.65%) 0 ml EA NARE QIDPRN PRN PRN Reason: Nasal Congestion
[2017-07-29] MEDS ORDERED: Acetaminophen 325 MG TAB PO PRN (20:25)
[2017-07-30 02:45] LABS: #Eosinphils 0.1 thou/uL (0.0-0.7); #Lymphocytes 1.5 thou/uL (1.20-3.40); #Monocytes 0.9 thou/uL (0.11-0.59); #Neutrophils 4.3 thou/uL (1.40-6.50); %Basophils 0.2 % (0.0-1.0); %Lymphocytes 21.4 % (21.0-51.0); %Monocytes 13.1 % (0.0-10.0); %Neutrophils 63.2 % (42.0-75.0); Hemoglobin 13.5 g/dL (14.0-18.0); Mean Corpuscular HGB CONC 33.8 g/dL (32.0-36.0); Mean Corpuscular Hemoglobin 31.4 pg (27.0-31.0); Mean Corpuscular Volume 92.8 fl (80.0-94.0); Mean Platelet Volume 8.2 fL (7.4-10.4); Platelet Count 191 thou/uL (130-400); RBC Distribution Width 11.4 % (11.5-14.5); Red Blood Cell (RBC) Count 4.28 mill/uL (4.70-6.10); White Blood Cell (WBC) Count 6.9 thou/uL (4.8-10.8)
[2017-07-30 03:40] LABS: ALT (SGPT) 84 U/L (8-55); AST (SGOT) 68 U/L (5-34); Albumin 3.3 g/dL (3.4-4.8); Alkaline Phosphatase 255 U/L (40-150); Anion Gap 10 mmol/L (10-20); BUN (Urea Nitrogen) 5 mg/dL (8.4-25.7); Bilirubin, Total 2.4 mg/dL (0.2-1.2); Calc. Creatinine Clearance 126 mL/min (70-130); Calcium 8.9 mg/dL (7.8-10.44); Carbon Dioxide 27 mmol/L (23-31); Chloride 103 mmol/L (98-107); Estimated GFR-MDRD Greater than 90; Globulin 2.8 g/dL (2.4-3.5); Glucose 80 mg/dL (80-115); Potassium 3.8 mmol/L (3.5-5.1); Protein, Total 6.1 g/dL (5.8-8.1); Sodium 136 mmol/L (136-145)
[2017-07-30 08:05] VITALS: TEMP 98.5
[2017-07-30] MEDS: NPH, Human Insulin Isophane 300 UNIT/3 ML VIAL SC SCH (08:13)
[2017-07-30] MEDS: Lisinopril 5 MG TAB PO SCH (08:13)
[2017-07-30] MEDS: Metoprolol Tartrate 25 MG TAB PO SCH (08:13)
[2017-07-30] MEDS: Insulin Regular 300 UNITS/3 ML VIAL SC PRN ×2 (11:55→17:01)
--- NOTE | 2017-07-30 14:51 | PRG ---
DATE OF SERVICE: 07/30/2017 SUBJECTIVE: Mr. Landa has no abdominal pain. He is tolerating a solid diet well. No nausea or vo miting. He had a normal bowel movement. OBJECTIVE: VITAL SIGNS: Temperature 98.5, pulse 83, blood pressure 127/84. GENERAL: He is in no acute distress, awake and alert. LUNGS: Clear to auscultation bilaterally. HEART: Regular rate and rhythm. ABDOMEN: Soft, nontender, nondistended. Bowel sounds are present. EXTREMITIES: No lower extremity edema. LABORATORY DATA: Hemoglobin 13.5, white blood cell count 6.9, creatinine 0.67, bilirubin 2.4, AST 68 , ALT 84, alkaline phosphatase 255. Acute viral hepatitis screen is negative. Mitochondrial antibod y is negative. Iron saturation is not elevated. IMPRESSION: 1. Acute rise of mixed cholestatic and hepatocellular injury pattern to the LFTs a few days into the hospital stay. The cause of this is not determined. However, medication side effect is suspected. No obvious medicine causing this, however, is identified. His liver tests are slowly improving. Hi s symptoms from his partial small-bowel obstruction have resolved. So far, blood work for other caus es of liver disease are negative. 2. Partial small-bowel obstruction, resolved. RECOMMENDATIONS: 1. Follow up in GI clinic in 1-2 weeks to recheck the liver tests and await additional labs includin g the smooth muscle antibody. 2. Anticipate discharge home today. I will sign off for now. Please call if GI can be of assistanc e.
[2017-07-30 16:53] VITALS: BP 116/75
--- NOTE | 2017-07-30 17:29 | DIS ---
DATE OF DISCHARGE: 07/30/2017 DISCHARGE DISPOSITION: Home. FOLLOWUP: 1. Follow up with primary care physician at [facility] in 1 week. 2. Follow up at GI clinic next week. The patient was advised to get LFTs next week. Primary care physician is advised to follow. TESTS PENDING AT DISCHARGE: Antismooth muscle antibody. The patient was seen on the day of discharge, denies any new complaints, no chest pain, shortness of breath, palpitations. Nausea, vomiting, abdominal discomfort has resolved. BRIEF HOSPITAL COURSE: Patient is a 62-year-old male with diabetes mellitus type 2, currently out of insulin, presented to the hospital with nausea, vomiting, and abdominal discomfort that has been fran oing for the last 24 hours. Please refer to the history and physical dated 07/21/2017 for further de tails. The patient was admitted to the hospital with a diagnosis of diabetic ketoacidosis along with nausea, vomiting, and abdominal discomfort. His WBC count was 16.6 on admission that was attributed to diab etic ketoacidosis. Next morning, he showed 12% bandemia with improvement in WBC at 13.7. CT scan of the abdomen and pelvis with IV contrast showed evidence of high grade partial small-bowel obstructio n. The patient was seen by Gastroenterology and General Surgery. He was kept n.p.o. and was conserv atively managed. His symptoms have improved. During this hospital course, his bilirubin went up fro m 1.2-9.7. Right upper quadrant ultrasound did not show any obstructive pathology or gallstones. Hi s bilirubin has improved to 2.4 on the day of discharge. Exact etiology appears to be unclear. Stat ins have been discontinued. He is tolerating regular food. He is ambulating in the hallway and appe ars stable for discharge. The patient was extensively counseled on diabetes mellitus type 2. He elton l be restarted back on metformin. SIGNIFICANT LABORATORIES: Hepatitis profile negative. Smooth muscle antibody 6, antimitochondrial a ntibody less than 0.5. WBC on the day of discharge is 6.9 without any left shift. FINAL DIAGNOSES: 1. Nausea, vomiting, abdominal discomfort secondary to small-bowel obstruction, resolved with conser vative management. 2. Suspected acute pancreatitis. His lipase maximum went up to 204. Yesterday, it dropped to 82. 3. Abnormal liver function tests of unclear etiology. 4. Metabolic acidosis/lactic acidosis on admission. 5. Diabetic ketoacidosis on admission, resolved. 6. Diabetes mellitus type 2. 7. Leukocytosis on admission, probably secondary to gastroenteritis, resolved. 8. Dyslipidemia. Statins will be held due to abnormal liver function tests. 9. Hypertension. 10. Dehydration on admission. 11. Chronic kidney disease, stage 2. Plan of care was discussed with the patient in detail. He stated understanding.
== END 2017-07-30 17:11 | disposition home or self-care (01) | DRG 388 ==
LOC: ERS 18:06 → T4-B 21:59
PROVIDERS: ADMIT Emergency Medicine; ATTEND Emergency Medicine
DX: K56.600 Partial intestinal obstruction, unspecified as to cause (principal); E11.10 Type 2 diabetes mellitus with ketoacidosis without coma; K85.90 Acute pancreatitis without necrosis or infection, unspecified; K83.1 Obstruction of bile duct; K82.8 Other specified diseases of gallbladder; I12.9 Hypertensive chronic kidney disease with stage 1 through stage 4 chronic kidney disease, or unspecified chronic kidney disease; E11.22 Type 2 diabetes mellitus with diabetic chronic kidney disease; N18.2 Chronic kidney disease, stage 2 (mild); R79.89 Other specified abnormal findings of blood chemistry; K52.9 Noninfective gastroenteritis and colitis, unspecified; E86.0 Dehydration; E87.6 Hypokalemia; E78.5 Hyperlipidemia, unspecified; E11.65 Type 2 diabetes mellitus with hyperglycemia; Z91.14 Patient's other noncompliance with medication regimen; Z79.82 Long term (current) use of aspirin; Z79.4 Long term (current) use of insulin
CPT/HCPCS: 36415; 36416; 71045; 74018; 74019; 74177; 74250; 76705; 80048; 80053; 80061; 80069; 80074; 80076; 81003; 82010; 82150; 82274; 82330; 82550; 82553; 82803; 83036; 83516; 83540; 83550; 83605; 83690; 83735; 83880; 84100; 84443; 84484; 85025; 85610; 87045; 87046; 87324; 87328; 87329; 87449; 87899; 93005; 93010; 96361; 96374; 96375; A4216; C9113; J0696; J1815; J1956; J2270; J2405; J2550; J2765; J3475; J7050; Q0162

== ENCOUNTER 2017-08-03 11:45 | Inpatient (IN) | payer OTHER ==
[2017-08-03] MEDS ORDERED: ISOVUE-370 76%-LOCM 1 ML ONE (12:33)
[2017-08-03] MEDS ORDERED: Iopamidol 370 76% 50 ML VIAL FS ONE (12:33)
[2017-08-03 13:12] LABS: Hemoglobin 16.5 g/dL (14.0-18.0); Mean Corpuscular Volume 94.3 fl (80.0-94.0); Mean Platelet Volume 8.3 fL (7.4-10.4); Platelet Count 335 thou/uL (130-400); RBC Distribution Width 11.8 % (11.5-14.5); Red Blood Cell (RBC) Count 5.15 mill/uL (4.70-6.10); White Blood Cell (WBC) Count 16.1 thou/uL (4.8-10.8)
[2017-08-03 13:16] LABS: #Basophils 0.1 thou/uL (0.0-0.2); #Eosinphils 0.1 thou/uL (0.0-0.7); #Lymphocytes 1.6 thou/uL (1.20-3.40); #Monocytes 0.9 thou/uL (0.11-0.59); #Neutrophils 13.5 thou/uL (1.40-6.50); %Basophils 0.3 % (0.0-1.0); %Eosinophils 0.3 % (0.0-10.0); %Lymphocytes 9.7 % (21.0-51.0); %Monocytes 5.4 % (0.0-10.0); %Neutrophils 84.2 % (42.0-75.0)
[2017-08-03 13:33] LABS: ALT (SGPT) 65 U/L (8-55); AST (SGOT) 34 U/L (5-34); Albumin 4.5 g/dL (3.4-4.8); Alkaline Phosphatase 279 U/L (40-150); Anion Gap 19 mmol/L (10-20); BUN (Urea Nitrogen) 14 mg/dL (8.4-25.7); Bilirubin, Total 2.4 mg/dL (0.2-1.2); Calc. Creatinine Clearance 0 mL/min (70-130); Carbon Dioxide 35 mmol/L (23-31); Chloride 87 mmol/L (98-107); Estimated GFR-MDRD 57; Globulin 3.9 g/dL (2.4-3.5); Glucose 261 mg/dL (80-115); Potassium 4.7 mmol/L (3.5-5.1); Protein, Total 8.4 g/dL (5.8-8.1); Sodium 136 mmol/L (136-145)
[2017-08-03] MEDS ORDERED: Ondansetron ODT 4 MG TAB ONE (14:46)
[2017-08-03 14:55] LABS: Bilirubin Large (Negative); Blood, Urine Negative (Negative); Clarity CLOUDY (Clear); Glucose, Urine (Dipstick) 100 mg/dL (Negative); Leukocyte Small (Negative); Nitrite Negative (Negative); Protein, Urine (Dipstick) 100 mg/dL (Neg-Trace); Specific Gravity, Urine 1.028 (1.002-1.036)
[2017-08-03 14:58] LABS: Bacteria/HPF None Seen HPF (None Seen); Pathc Cast-AUWi Flag 22.97 (0-2.49)
[2017-08-03 15:10] LABS: Hyaline Casts/LPF >50 HYALINE CAST LPF (0-3 Hyaline); RBC/HPF 0-3 HPF (0-3); Renal Epithelial 0-3 HPF (0-3); Transitional Epithelial 0-3 HPF (0-3)
[2017-08-03] MEDS ORDERED: Benzocaine 20% Spray 60 ML CAN ONE (16:59)
[2017-08-03] MEDS ORDERED: Oxymetazoline HCl 0.05% ( 15 ML ) ONE (16:59)
[2017-08-03] MEDS ORDERED: Lidocaine Viscous Sol 2% 15 ml UD Cup ONE (16:59)
--- NOTE | 2017-08-03 17:20 | CT ---
CONTRAST ENHANCED CT IMAGES OF ABDOMEN AND PELVIS: Date: 08/03/17 HISTORY: Patient with history of bowel obstruction, recurrent abdominal pain. Loss of appetite. Complaining of vomiting. COMPARISON: Previous exam from 07/22/17. FINDINGS: Contrast enhanced CT images of the abdomen and pelvis demonstrate areas of scarring seen in the right lower lobe, and to some degree in the left lower lobe. The liver and spleen are unremarkable. The gallbladder is extensively contracted. There is some gallbladder wall thickening without evidence of significant pericholecystic fluid. Some of the gallbladder changes may be due to the partial cont raction. When was the patient's most recent meal? There is moderate distention of the stomach. There is abnormal thickening in the distal esophagus con cerning for esophagitis, more prominent than on the previous exam. There continues to be a moderate d egree of small bowel dilatation with small bowel loops measuring up to 3.6 cm. Air fluid level is als o seen again in the small bowel. Adrenal glands and kidneys are unremarkable. No evidence of ascites seen. Air fluid levels seen in the colon. There is a large amount of stool seen in the rectum. Could this r epresent fecal impaction? Correlate with clinical exam. IMPRESSION: 1. Distal esophageal abnormal thickening concerning for esophagitis. 2. Small bowel dilatation concerning for bowel obstruction or ileus. 3. Some air fluid levels seen in the colon with collection of stool in the rectum. This may represen t possible fecal impaction. 4. Moderate distention of the stomach. POS: [facility]
[2017-08-03] MEDS ORDERED: Dextrose 50% Abboject 50 ML SYRINGE SLOW IVP PRN (18:35)
[2017-08-03] MEDS ORDERED: HumaLOG 300 UNITS/3 ML VIAL SC PRN (18:35)
[2017-08-03] MEDS ORDERED: Dextrose 5% in Water 1,000 ML IV PRN (18:35)
[2017-08-03 19:03] LABS: Hemoglobin A1c 8.7 % (4.0-6.0)
[2017-08-03] MEDS ORDERED: Ondansetron HCl/PF 4 MG/2 ML Vial IVP PRN (19:12)
[2017-08-03] MEDS ORDERED: Fleet Enema 133 ML BOT PR PRN (19:12)
--- NOTE | 2017-08-03 19:58 | HP ---
DATE OF CONSULTATION: 08/03/2017 CHIEF COMPLAINT: Abdominal pain and vomiting. HISTORY OF PRESENT ILLNESS: This is a 62-year-old male who was recently admitted a week ago for small-bowel obstruction and was discharged home with instructions to be on the clear liquids for some time, and he is on clear liquids with soup and broth diet. Yesterday, he started developing wo rsening abdominal pain and he did had a bowel movement, but unable to say he had a clear bowel moveme nt. Following this, he has severe abdominal pain of 7 on 10 intensity in the mid epigastric area, no t radiating anywhere, no aggravating factors, and relieved with vomiting. He has been throwing up gr een bile since yesterday and he decided to come to the ER this afternoon as he has been having persis tent vomiting. He denied having any fever. Denied having any headache or dizziness. He has a known history of diabetes, on metformin. History of hypertension, which is well controlled. The patient is seen in the ER along with the family members, the neighbor for the patient was giving most of the history as the patient is not able to speak. She mentioned there was no change since pre vious admission and he has been doing exactly what he was told to. The patient's family is worried a bout if he had any ulcers causing this problem and he has multiple abdominal surgeries, mostly hernia repairs in the past. PAST MEDICAL HISTORY: 1. Type 2 diabetes mellitus. 2. Hypertension. 3. Hyperlipidemia. PAST SURGICAL HISTORY: 1. Hernia repair. 2. Tonsillectomy. ALLERGIES: No known drug allergies. HOME MEDICATIONS: Aspirin 325 mg p.o. daily, metoprolol 25 mg p.o. b.i.d., enalapril, hydrochlorothi azide, metformin, and pravastatin. He also takes insulin NPH 30 units daily. SOCIAL HISTORY: The patient lives at home. No history of smoking. No history of alcohol. No histo ry of illicit drug use. He lives with his and both are Romansh speaking. FAMILY HISTORY: No significant family history of coronary artery disease or any premature cancers in the family. REVIEW OF SYSTEMS: All 12 systems are reviewed with the patient thoroughly. The systems reviewed ar e HEENT, CVS, DIGITAL DIRECTOR, respiratory, GI, . All systems are reviewed and found to be negative at this ti me. Constitutional: Weight loss or gain, sense of well-being, ability to conduct usual activities, exerc ise tolerance. Skin/Breast: Rash, itching, changes in hair growth or loss, nail changes, breast lumps, tenderness, swelling, nipple discharge. Eyes: Vision, double vision, tearing, blind spots, pain. ENT/Mouth: Headaches (location, time of onset, duration, precipitating factors), vertigo, lightheadedness, injury. Vision, double vision, tearing, blind spots, pain, nose b leeding, colds, obstruction, discharge, dental difficulties, gingival bleeding, dentures, neck stiffn ess, pain, tenderness, masses in thyroid or other areas Cardiovascular: Precordial pain, substernal distress, palpitations, syncope, dyspnea on exertion, or thopnea, nocturnal paroxysmal dyspnea, edema, cyanosis, hypertension, heart murmurs, varicosities, ph lebitis, claudication. Respiratory: Pain, shortness of breath, wheezing, stridor, cough, hemoptysis, fever or night sweats Gastrointestinal: Poor appetite, dysphagia, indigestion, abdominal pain, heartburn, eructation, naus ea, vomiting, hematemesis, jaundice, constipation, or diarrhea, abnormal stools (cordelia-colored, tarry, bloody, greasy, foul smelling), flatulence, hemorrhoids, recent changes in bowel habits. Genitourinary: Urgency, frequency, dysuria, nocturia, hematuria, polyuria, oliguria, unusual (or all nge in) color of urine, stones, hesitancy, change in size of stream, dribbling, acute retention or in continence, libido, potency. Musculoskeletal: Pain, swelling, redness or heat of muscles or joints, limitation, of motion, muscular weakness, atrophy, cramps. Neurologic/Psychiatric: Convulsions, paralyses, tremor, incoordination, parasthesias, difficulties w ith memory of speech, sensory or motor disturbances, or muscular coordination (ataxia, tremor), emoti onal problems, anxiety, depression, previous psychiatric care, unusual perceptions, hallucinations. Allergy/Immunologic: Skin rash, anemia, bleeding tendency, polydipsia, polyuria, intolerance to heat or cold. PHYSICAL EXAMINATION: VITAL SIGNS: Blood pressures are 110/64, heart rate is 103, respiratory rate is 18, saturation is 98 %. GENERAL: The patient is moderately built and moderately nourished, does not appear to be in acute di stress at this time. He has a NG tube connected to intermittent suction. HEENT: Atraumatic, normocephalic, PERRLA. Extraocular movements were intact. Oral mucosa is pink a nd moist. CARDIOVASCULAR: S1, S2 normal. No murmurs, rubs or gallops. LUNGS: Bilateral air entry was equal. No wheezing, no crackles. ABDOMEN: Distended, nontender, soft at this time with bowel sounds reduced. MUSCULOSKELETAL: No calf tenderness. No pedal edema. No joint tenderness. No joint swelling. SKIN: No cyanosis, no erythema, no rash, no pallor. NEUROLOGIC: Cranial nerve examination II-XII are intact. No focal deficits were noted at this time. PSYCHIATRIC: No signs of suicidal ideation. No signs of medina was noted. LABORATORY DATA: Sodium is 136, potassium 4.7, chloride is 87, bicarbonate 35, BUN is 14, creatinine 1.28. Lactic acid is 1.7, blood sugar is 225, calcium is 11.0. Total bilirubin is 2.4, AST is 35, ALT 65, alkaline phosphatase 279. UA showed evidence of severe proteinuria and ketonuria. Also, he has a mild leukocyte esterase, otherwise. IMAGIN. CT of the abdomen and pelvis was done which showed a significant enlargement, thickening of the e sophagus suggestive of possible esophagitis. 2. The patient has small bowel dilatation concerning for small-bowel obstruction and has a stool imp action noted on the CT. Also, there was moderate distention of the stomach. ASSESSMENT AND PLAN: 1. Acute distal esophageal distention with gastric distention. This could be a part of the small micah wel obstruction or it could also be a possible malignancy. This needs to be ruled out. I will consu lt GI for a possible endoscopy. 2. The patient has a small-bowel obstruction, which is evident with a bilious drainage and intermitt ent suction. We will continue with small bowel obstruction and this has been recurrent bowel obstruc tion most likely this could be secondary to surgeries with adhesions. We will consult General Surger y at this time as the patient has been having recurrent problems. 3. The patient has hypercalcemia. Either this could be severe dehydration; however, there could be underlying malignancy. At this time, we will wait for the GI evaluation. 4. The patient has severe stool impaction which could have contributed to bowel obstruction at this time. We will do an enema to relieve the impaction or otherwise would take the help of the GI for ma nual stool impaction. 5. The patient has poorly controlled type 2 diabetes mellitus with ketonuria and elevated blood suga rs. We will start the patient on sliding scale insulin at this time. We will do HbA1c to look for t he sugar control. The patient is on metformin and NPH as an outpatient. We will hold off on these m edications. 6. Hypertension is well controlled. We will hold home medications and will continue with hydralazin e 10 mg q.6 hours p.r.n. for blood pressure management. 7. DVT prophylaxis, SCDs at this time. I spent 75 minutes with this patient.
[2017-08-03] MEDS: Sodium Chloride 0.9% 1,000 ML IV SCH (20:48)
[2017-08-03] MEDS: Pantoprazole 40 MG VIAL IVP SCH (20:49)
--- NOTE | 2017-08-03 21:33 | RAD ---
AP CHEST: History: Recurrent vomiting. Comparison: 07-21-17 FINDINGS: AP chest demonstrates mild pulmonary vascular congestion. There has been placement of a nasogastric t ube, distal tip overlying the left upper quadrant of the abdomen. No evidence of acute intrathoracic abnormalities seen. IMPRESSION: 1. Pulmonary vascular congestion. 2. NG tube appears to have the distal aspect overlying the gastric fundus. POS: [facility]
[2017-08-03 22:23] VITALS: BMI 21.2
[2017-08-04 05:54] LABS: #Eosinphils 0.1 thou/uL (0.0-0.7); #Lymphocytes 1.7 thou/uL (1.20-3.40); #Monocytes 0.7 thou/uL (0.11-0.59); #Neutrophils 5.2 thou/uL (1.40-6.50); %Basophils 0.5 % (0.0-1.0); %Eosinophils 1.8 % (0.0-10.0); %Lymphocytes 21.9 % (21.0-51.0); %Monocytes 8.6 % (0.0-10.0); %Neutrophils 67.2 % (42.0-75.0); Hemoglobin 12.2 g/dL (14.0-18.0); Mean Corpuscular HGB CONC 33.1 g/dL (32.0-36.0); Mean Corpuscular Hemoglobin 31.2 pg (27.0-31.0); Mean Platelet Volume 8.1 fL (7.4-10.4); Platelet Count 238 thou/uL (130-400); RBC Distribution Width 11.4 % (11.5-14.5); Red Blood Cell (RBC) Count 3.92 mill/uL (4.70-6.10); White Blood Cell (WBC) Count 7.8 thou/uL (4.8-10.8)
[2017-08-04] MEDS: Sodium Chloride 0.9% 1,000 ML IV SCH ×2 (05:58→15:17)
[2017-08-04 06:29] LABS: ALT (SGPT) 42 U/L (8-55); AST (SGOT) 22 U/L (5-34); Albumin 3.2 g/dL (3.4-4.8); Alkaline Phosphatase 175 U/L (40-150); Anion Gap 9 mmol/L (10-20); BUN (Urea Nitrogen) 10 mg/dL (8.4-25.7); Bilirubin, Total 1.8 mg/dL (0.2-1.2); Calc. Creatinine Clearance 114 mL/min (70-130); Calcium 8.3 mg/dL (7.8-10.44); Carbon Dioxide 30 mmol/L (23-31); Chloride 100 mmol/L (98-107); Estimated GFR-MDRD Greater than 90; Globulin 2.5 g/dL (2.4-3.5); Glucose 145 mg/dL (80-115); Potassium 3.7 mmol/L (3.5-5.1); Protein, Total 5.7 g/dL (5.8-8.1); Sodium 135 mmol/L (136-145)
[2017-08-04] MEDS: Pantoprazole 40 MG VIAL IVP SCH ×2 (08:14→20:19)
[2017-08-04] MEDS ORDERED: Dextrose 5% in Water 1,000 ML IV PRN (14:47)
[2017-08-04] MEDS ORDERED: Dextrose 50% Abboject 50 ML SYRINGE SLOW IVP PRN (14:47)
--- NOTE | 2017-08-04 16:14 | PDOC.PN ---
- Subjective Encounter Start Date: 08/04/17 Encounter Start Time: 15:00 Patient is seen today, alert and oriented. No other Concerns noted. Discussed with nurse who translated, pt had Diarrhea today as he was given enema due to Stool Impaction , he is still having Diaarhea, Likely obstruction resolved, Waiting on Surgery as pt is having recurrent obstructions. pt also has thickened esophagus concerning for barrets. Will need EGD. - Objective Resuscitation Status: Resuscitation Status FULL:Full Resuscitation MAR Reviewed: Yes Vital Signs & Weight: Vital Signs (12 hours) Temp Pulse Resp BP Pulse Ox 08/04/17 11:44 98.1 F 89 18 131/70 94 L 08/04/17 08:00 97.9 F 80 18 92 L 08/04/17 07:34 97.9 F 80 18 112/65 92 L 08/04/17 06:48 98.1 F 89 18 126/70 95 Weight Admit Weight 170 lb Weight 170 lb I&O: 08/03/17 08/04/17 08/05/17 06:59 06:59 06:59 Intake Total 909 Output Total 200 Balance 709 Result Diagrams: 08/04/17 05:20 08/04/17 05:20 Additional Labs: Accuchecks 08/04/17 08/04/17 08/03/17 11:44 05:44 21:24 POC Glucose 134 H 132 H 165 H Radiology Reviewed by me: Yes Phys Exam - Physical Examination HEENT: PERRLA, moist MMs Neck: no nodes, no JVD Respiratory: no wheezing, no rales Cardiovascular: RRR, no significant murmur Gastrointestinal: soft, non-tender Musculoskeletal: no edema Neurological: non-focal, normal sensation Lymphatic: no nodes Psychiatric: normal affect, A&O x 3 Skin: no rash, normal turgor Dx/Plan (1) Impacted stool in rectum Code(s): K56.41 - FECAL IMPACTION Status: Resolved Comment: Followingb enema , it resolved. (2) Thickening of esophagus Code(s): K22.8 - OTHER SPECIFIED DISEASES OF ESOPHAGUS Status: Acute Comment : Waiting on GI to see pt. need to R/o Barrets esophagus, pt with H/o GERD (3) Abnormal LFTs Code(s): R94.5 - ABNORMAL RESULTS OF LIVER FUNCTION STUDIES Status: Acute Comment: LFTs improving (4) Epigastric abdominal pain Code(s): R10.13 - EPIGASTRIC PAIN Status: Acute Comment: secondary to partial SBO, pain control, OOB ambulate (5) Partial small bowel obstruction Status: Acute Comment: improving (6) Dyslipidemia Code(s): E78.5 - HYPERLIPIDEMIA, UNSPECIFIED Status: Chronic (7) Hyperglycemia due to type 2 diabetes mellitus Code(s): E11.65 - TYPE 2 DIABETES MELLITUS WITH HYPERGLYCEMIA Status: Chronic Comment: ISS, Pt still NPO. (8) Hypertension Code(s): I10 - ESSENTIAL (PRIMARY) HYPERTENSION Status: Chronic Comment: well controlled on IV prn Meds. (9) Dehydration Code(s): E86.0 - DEHYDRATION Status: Resolved Comment: Cotninue IV fluids. - Plan cont current plan of care, plan discussed w/ family, PT/OT, clinical social work therapist, incentive spirometry, out of bed/ambulate, DVT proph w/SCDs * . Review of Systems - Review of Systems Eyes: negative: Pain, Vision Change, Conjunctivae Inflammation, Eyelid Inflammation, Redness, Other ENT: negative: Ear Pain, Ear Discharge, Nose Pain, Nose Discharge, Nose Congestion, Mouth Pain, Mouth Swelling, Throat Pain, Throat Swelling, Other Respiratory: negative: Cough, Dry, Shortness of Breath, Hemoptysis, SOB with Excertion, Pleuritic Pain, Sputum, Wheezing Cardiovascular: negative: chest pain, palpitations, orthopnea, paroxysmal nocturnal dyspnea, edema, light headedness, other Gastrointestinal: negative: Nausea, Vomiting, Abdominal Pain, Diarrhea, Constipation, Melena, Hematochezia, Other Musculoskeletal: negative: Neck Pain, Shoulder Pain, Arm Pain, Back Pain, Hand Pain, Leg Pain, Foot Pain, Other Skin: negative: Rash, Lesions, Yoel, Bruising, Other - Medications/Allergies Allergies/Adverse Reactions: Allergies Allergy/AdvReac Type Severity Reaction Status Date / Time No Known Allergies Allergy Verified 08/03/17 23:36 Medications: Current Medications Dextrose/Water (Dextrose 50%) 25 gm SLOW IVP PRN PRN PRN Reason: Hypoglycemia Glucagon (Glucagon) 1 mg IM PRN PRN PRN Reason: Hypoglycemia Sodium Chloride (Normal Saline 0.9%) 1,000 mls @ 100 mls/hr IV .Q10H NIK Last Admin: 08/04/17 15:17 Dose: 1,000 mls Dextrose/Water (D5w) 1,000 mls @ 0 mls/hr IV .Q0M PRN; As Directed PRN Reason: Hypoglycemia Insulin Human Lispro (Humalog) 0 units SC .MODERATE SLIDING SC PRN PRN Reason: Moderate Correctional Scale Ondansetron HCl (Zofran) 4 mg IVP Q6H PRN PRN Reason: Nausea/Vomiting Pantoprazole Sodium (Protonix) 40 mg IVP Q12HR NIK Last Admin: 08/04/17 08:14 Dose: 40 mg Sodium Chloride (Flush - Normal Saline) 10 ml IVF Q12HR NIK Last Admin: 08/04/17 08:14 Dose: 10 ml Sodium Chloride (Flush - Normal Saline) 10 ml IVF PRN PRN PRN Reason: Saline Flush Last Admin: 08/03/17 20:49 Dose: 10 ml
[2017-08-05] MEDS: Sodium Chloride 0.9% 1,000 ML IV SCH ×2 (02:19→12:55)
--- NOTE | 2017-08-05 04:50 | CON ---
DATE OF CONSULTATION: 08/04/2017 CHIEF COMPLAINT: Abdominal pain and nausea and vomiting. HISTORY OF PRESENT ILLNESS: Mr. Landa is a 62-year-old man who was readmitted to the hospital yest erday with recurrent nausea, vomiting, and abdominal pain in the epigastric region, which is dull and aching and severe. The pain does not radiate. He had an NG tube placed in the emergency room and h e had 250 mL out overnight and then only 30 mL through the day today. The NG tube came out after he sneezed and was left out. His abdominal pain has resolved after NG decompression. He did have a liq uidy bowel movement this morning, which was nonbloody. He had been tolerating liquids at home prior to readmission. He was just admitted to the hospital last week with partial small-bowel obstruction and elevated liver tests that occurred during the hospital stay. PAST MEDICAL HISTORY: Hypertension, diabetes, hyperlipidemia. PAST SURGICAL HISTORY: Hernia repair, tonsillectomy. FAMILY HISTORY: Negative for GI malignancy. SOCIAL HISTORY: No alcohol, tobacco or drugs. ALLERGIES: No known drug allergies. CURRENT MEDICATIONS: Insulin, pantoprazole. At home, he had been on metformin, metoprolol, lisinopr il, and insulin. REVIEW OF SYSTEMS: Negative x10 systems reviewed except as stated in the history of present illness. LABORATORY DATA: His white blood cell count was 16 yesterday, but down to 7.8 today. His hemoglobin was 16.5 yesterday, down to 12.2 after rehydration; platelets 238. INR 1.2 on 07/28/2017. Creatini ne 0.74. Bilirubin 1.8, which is still trending down from the previous admission, where it was as hi gh as 9.7. AST 22, ALT 42. Alkaline phosphatase is still elevated at 175, again this is trending do wn. Previous hospital stay, his viral hepatitis screen was negative. His smooth muscle and mitochon drial antibody were negative. IMPRESSION: 1. Recurrent admission with nausea and vomiting, and epigastric pain. He had a partial small-bowel obstruction on previous hospitalization last week. Again, CT scan this hospital stay on 08/03/[address] showed small bowel dilation with some distention of the stomach concerning again for sm all-bowel obstruction. There were some air fluid levels in the colon. The distal esophagus was also noted to be thickened. 2. Recurrent partial small-bowel obstruction, again, resolved. He had only 30 mL out of the NG tube over the last 12 hours. He has no further nausea, vomiting or pain. He had a liquidy bowel movemen t today. 3. Esophageal thickening. This is likely secondary to esophagitis from the recurrent nausea and vom iting. We will plan endoscopy to rule out peptic ulcer disease or erosive esophagitis. 4. Abnormal liver function tests. He developed acute cholestatic liver test during his hospital sta y last week. The liver tests are trending now down. This may have been from a drug-induced liver in jury or infectious process. Labs for other causes of liver disease have been negative so far. Liver biopsy is not indicated at this point. RECOMMENDATIONS: 1. EGD tomorrow. 2. If the EGD is negative, then advance to clear liquid diet following the procedure tomorrow. If h e does not tolerate the clear liquids, then consider small bowel follow through. However, if he does , then we should be able to just advance his diet.
[2017-08-05 05:11] LABS: ALT (SGPT) 37 U/L (8-55); AST (SGOT) 22 U/L (5-34); Albumin 3.3 g/dL (3.4-4.8); Alkaline Phosphatase 172 U/L (40-150); Anion Gap 10 mmol/L (10-20); BUN (Urea Nitrogen) 8 mg/dL (8.4-25.7); Bilirubin, Total 1.9 mg/dL (0.2-1.2); Calc. Creatinine Clearance 119 mL/min (70-130); Calcium 8.5 mg/dL (7.8-10.44); Carbon Dioxide 27 mmol/L (23-31); Chloride 104 mmol/L (98-107); Estimated GFR-MDRD Greater than 90; Globulin 2.6 g/dL (2.4-3.5); Glucose 108 mg/dL (80-115); Potassium 3.9 mmol/L (3.5-5.1); Protein, Total 5.9 g/dL (5.8-8.1); Sodium 137 mmol/L (136-145)
--- NOTE | 2017-08-05 07:10 | HP ---
HISTORY OF PRESENT ILLNESS: Pedro Landa is a 62-year-old [place]-speaking only male admitted this hospitalization yesterday by Hospitalist Service. Patient complains of epigastric pain, right upper quadrant pain, and back radiation. He is admitted for a similar episode on 07/30/2017, discharged h ome. During the hospitalization, he is seen by Herb Rodney for surgery consult. He apparently had ab dominal x-rays and a CAT scan. CAT scan was obtained on 07/22/2017, revealing some dilated small bow el loops and changes suggestive of bowel obstruction. Patient on 07/23/2017 had a small bowel follow -through contrast reached the colon within 2 hours and he was discharged home. During that hospitali zation on 07/22/2017, his abdominal ultrasound revealing gallbladder sludge with normal bile duct omer iber. At this hospitalization, his white count 16 here, 7.8 today. Basic metabolic profile unremark able. Bilirubin 1.8, AST and ALT 22 and 42, alkaline phosphatase 175. Gastroenterology consultation has been ordered 2 days ago, but he has not been seen by this hour. He has been n.p.o. CAT scan of abdomen and pelvis repeated this hospitalization reveals a fecal impaction, distal esophageal thicke lidia, small bowel dilatation, smear fluid levels in the colon and stool. The patient had a bowel mov ement last night and this morning, he had an enema this morning and a large bowel movement is resolve d. ALLERGIES: None. TOBACCO: None. ALCOHOL: None. HOME MEDICATIONS: Metformin 500 b.i.d., insulin 10 units subcu b.i.d., metoprolol 25 mg b.i.d., lyndsey nopril 5 mg b.i.d. PAST SURGICAL HISTORY: Right inguinal hernia repair. Infraumbilical incision from what he reports i s another hernia repair. PAST MEDICAL HISTORY: Diabetes, hypertension. SOCIAL HISTORY: The patient is unemployed. PHYSICAL EXAMINATION: VITAL SIGNS: 6 feet, 370 pounds, 21 BMI, 98.6 degrees, 74, 18, 143/73. HEAD, EARS, EYES, NOSE, AND THROAT: Unremarkable. LUNGS: Clear to auscultation. CARDIAC: Regular rate and rhythm without murmur or gallop. ABDOMEN: Soft, nondistended, nontympanitic, nontender. Infraumbilical midline incision per above he rnia repair history. Right inguinal scar per above inguinal hernia repair history. LABORATORY AND DIAGNOSTIC DATA: Basic metabolic profile normal. Bilirubin 1.8, bilirubin on 018 was up to 9.7; on 07/27, 5.6. He has been gradually declining last hospitalization, this hospita lization. AST normal this hospitalization, slightly elevated on occasion last hospitalization. Estella line phosphatase 175 today up to 266 last hospitalization. As noted above, ultrasound last hospitali zation, gallbladder sludge. Serology last hospitalization, hepatitis nonreactive. ASSESSMENT AND PLAN: 1. Gallbladder sludge and elevated liver function test last hospitalization, improving episodic epig astric right upper quadrant pain due to his episodic epigastric pain, right upper quadrant pain on re cent admission and this admission, even though there are some dilated small bowel loops. There was n o evidence of bowel obstruction with small bowel follow through. I would recommend proceeding with l aparoscopic cholecystectomy. I am told by the nurse , there was some plan for an upper endoscopy, bu t visual education teacher has not seen the patient, Dr. Gutierrez was consulted two days ago. During laparosco py, we would plan laparoscopic evaluation of small bowel. Upper endoscopy could be considered. 2. Diabetes. 3. Hypertension.
[2017-08-05] MEDS ORDERED: Lidocaine 1% PF 5 ML VIAL ONE (07:29)
[2017-08-05] MEDS ORDERED: PROPOFOL 200 MG/20 ML VIAL ONE (07:29)
[2017-08-05] MEDS ORDERED: Ondansetron HCl/PF 4 MG/2 ML Vial ONE (07:29)
[2017-08-05] MEDS ORDERED: Glycopyrrolate 0.2 MG/ML 5 ML SYRINGE ONE (07:29)
[2017-08-05] MEDS ORDERED: Ketorolac Tromethamine 30 MG/ML VIAL ONE (07:29)
[2017-08-05] MEDS: Pantoprazole 40 MG VIAL IVP SCH (08:04)
--- NOTE | 2017-08-05 09:02 | RAD ---
ACUTE ABDOMINAL SERIES FRONTAL VIEW CHEST AND 2 VIEW ABDOMEN SERIES: Date: 08/05/17 INDICATION: Small bowel dilatation, abdominal pain. FINDINGS: There is no focal consolidation. No free air beneath the hemidiaphragms. Enteric contrast traverses t he majority of the course of the colon. Paucity of small bowel gas is seen. IMPRESSION: Contrast traverses to the level of the distal colon. No evidence for small bowel obstruction, radiogr aphically. POS: [facility]
--- NOTE | 2017-08-05 15:23 | PDOC.PN ---
- Subjective Encounter Start Date: 08/05/17 Encounter Start Time: 08:00 Patient Seen this morning, has no bnausea or vomiting, planned for Lap juliane and EGD later this afternoon. - Objective Resuscitation Status: Resuscitation Status FULL:Full Resuscitation MAR Reviewed: Yes Vital Signs & Weight: Vital Signs (12 hours) Temp Pulse Resp BP Pulse Ox 08/05/17 08:00 98.4 F 73 16 131/71 94 L Weight Admit Weight 170 lb Weight 170 lb I&O: 08/04/17 08/05/17 08/06/17 06:59 06:59 06:59 Intake Total 909 2131 Output Total 200 30 Balance 709 2101 Result Diagrams: 08/04/17 05:20 08/05/17 04:25 Additional Labs: Accuchecks 08/05/17 08/05/17 08/04/17 11:31 04:47 20:16 POC Glucose 121 H 96 126 H 08/04/17 16:43 POC Glucose 118 H Radiology Reviewed by me: Yes Phys Exam - Physical Examination HEENT: PERRLA, moist MMs Neck: no nodes Respiratory: no wheezing, no rales Cardiovascular: RRR, no significant murmur Gastrointestinal: soft, non-tender Musculoskeletal: no edema, pulses present Neurological: non-focal, normal sensation Psychiatric: normal affect, A&O x 3 Skin: no rash Dx/Plan (1) Impacted stool in rectum Code(s): K56.41 - FECAL IMPACTION Status: Resolved Comment: Followingb enema , it resolved. (2) Thickening of esophagus Code(s): K22.8 - OTHER SPECIFIED DISEASES OF ESOPHAGUS Status: Acute Comment : GI to see pt and do EGD today. need to R/o Barrets esophagus, pt with H/o GERD (3) Abnormal LFTs Code(s): R94.5 - ABNORMAL RESULTS OF LIVER FUNCTION STUDIES Status: Acute Comment: LFTs improving (4) Epigastric abdominal pain Code(s): R10.13 - EPIGASTRIC PAIN Status: Resolved Comment: secondary to partial SBO resolved, pain control, OOB ambulate (5) Partial small bowel obstruction Status: Resolved Comment: improving (6) Dyslipidemia Code(s): E78.5 - HYPERLIPIDEMIA, UNSPECIFIED Status: Chronic (7) Hyperglycemia due to type 2 diabetes mellitus Code(s): E11.65 - TYPE 2 DIABETES MELLITUS WITH HYPERGLYCEMIA Status: Chronic Comment: ISS, Pt still NPO for lapchole today and EGD for Thickened Esophagus (8) Hypertension Code(s): I10 - ESSENTIAL (PRIMARY) HYPERTENSION Status: Chronic Comment: well controlled on IV prn Meds. (9) Dehydration Code(s): E86.0 - DEHYDRATION Status: Resolved Comment: Cotninue IV fluids. - Plan cont current plan of care, plan discussed w/ family, lubin catheter, PT/OT, clinical social work aide, DVT proph w/SCDs * . Review of Systems - Review of Systems Eyes: negative: Pain, Vision Change, Conjunctivae Inflammation, Eyelid Inflammation, Redness, Other ENT: negative: Ear Pain, Ear Discharge, Nose Pain, Nose Discharge, Nose Congestion, Mouth Pain, Mouth Swelling, Throat Pain, Throat Swelling, Other Respiratory: negative: Cough, Dry, Shortness of Breath, Hemoptysis, SOB with Excertion, Pleuritic Pain, Sputum, Wheezing Cardiovascular: negative: chest pain, palpitations, orthopnea, paroxysmal nocturnal dyspnea, edema, light headedness, other Gastrointestinal: negative: Nausea, Vomiting, Abdominal Pain, Diarrhea, Constipation, Melena, Hematochezia, Other Musculoskeletal: negative: Neck Pain, Shoulder Pain, Arm Pain, Back Pain, Hand Pain, Leg Pain, Foot Pain, Other - Medications/Allergies Allergies/Adverse Reactions: Allergies Allergy/AdvReac Type Severity Reaction Status Date / Time No Known Allergies Allergy Verified 08/03/17 23:36 Medications: Current Medications Dextrose/Water (Dextrose 50%) 25 gm SLOW IVP PRN PRN PRN Reason: Hypoglycemia Glucagon (Glucagon) 1 mg IM PRN PRN PRN Reason: Hypoglycemia Sodium Chloride (Normal Saline 0.9%) 1,000 mls @ 100 mls/hr IV .Q10H NIK Last Admin: 08/05/17 12:55 Dose: 1,000 mls Dextrose/Water (D5w) 1,000 mls @ 0 mls/hr IV .Q0M PRN; As Directed PRN Reason: Hypoglycemia Levofloxacin 500 mg/ Device 100 mls @ 100 mls/hr IVPB Q24HR NIK Last Admin: 08/04/17 23:37 Dose: 100 mls Insulin Human Lispro (Humalog) 0 units SC .MODERATE SLIDING SC PRN PRN Reason: Moderate Correctional Scale Ondansetron HCl (Zofran) 4 mg IVP Q6H PRN PRN Reason: Nausea/Vomiting Pantoprazole Sodium (Protonix) 40 mg IVP Q12HR NIK Last Admin: 08/05/17 08:04 Dose: 40 mg Sodium Chloride (Flush - Normal Saline) 10 ml IVF Q12HR NIK Last Admin: 08/05/17 08:04 Dose: 10 ml Sodium Chloride (Flush - Normal Saline) 10 ml IVF PRN PRN PRN Reason: Saline Flush Last Admin: 08/03/17 20:49 Dose: 10 ml
[2017-08-05] MEDS ORDERED: Bupivacaine/Epinephrine 0.25% 30 ML VIAL ONE (16:23)
[2017-08-05] MEDS ORDERED: Fentanyl 100 MCG/2 ML VIAL ONE (16:27)
[2017-08-05] MEDS ORDERED: Fentanyl 250 MCG/5 ML VIAL ONE (16:27)
[2017-08-05] MEDS ORDERED: Famotidine/PF 20 mg/2ml Vial ONE (16:27)
[2017-08-05] MEDS ORDERED: Iothalamate Meglumine 60% 50 ML VIAL FS ONE (16:49)
[2017-08-05] MEDS ORDERED: Bupivacaine HCl 0.5%/Epinephrine 1:200,000/PF 30 ml Vial ONE (16:50)
[2017-08-05] MEDS ORDERED: Ibuprofen 600 MG TAB PO PRN (18:03)
[2017-08-05] MEDS ORDERED: traMADol HCl 50 MG TAB PO PRN ×2 (18:03)
[2017-08-05] MEDS ORDERED: Acetaminophen 500 MG TAB PO PRN (18:03)
[2017-08-05] MEDS ORDERED: Meperidine HCl/PF 25 MG/ML VIAL SLOW IVP PRN (18:09)
[2017-08-05] MEDS ORDERED: Promethazine HCl 25 MG/ML VIAL SLOW IVP PRN (18:09)
[2017-08-05] MEDS ORDERED: Ondansetron HCl/PF 4 MG/2 ML Vial IVP PRN (18:09)
[2017-08-05] MEDS ORDERED: Promethazine HCl 25 MG/ML VIAL IM PRN (18:09)
--- NOTE | 2017-08-05 20:01 | RAD ---
INTRAOPERATIVE CHOLANGIOGRAM: 08/05/2017 PROVIDED CLINICAL HISTORY: Cholecystectomy. FINDINGS: Spot fluoroscopic images from intraoperative cholangiogram submitted. The visualized portions of the opacified biliary system demonstrate no evidence for a filling defect. There is a somewhat narrowed appearance to the pancreatic duct, near its confluence with the common bile duct, which may be artif actual, on a transient basis. Correlate with real-time imaging. POS: [facility]
--- NOTE | 2017-08-05 20:53 | OP ---
DATE OF PROCEDURE: 08/05/2017 PROCEDURE: Esophagogastroduodenoscopy (diagnostic). INDICATION FOR PROCEDURE: Midepigastric abdominal pain, nausea, and vomiting. DESCRIPTION OF PROCEDURE: After the risks and the benefit of the procedure were explained to the pat ient including risks of bleeding, infection, perforation, reaction to anesthesia or pain, informed co nsent was obtained. The patient was then taken to the operating room where general anesthesia was ad ministered via anesthesia support. Once adequate sedation was achieved with endotracheal intubation, the standard gastroscope was introduced into the mouth with intubation of the esophagus, stomach and the proximal small intestine with the findings listed below. The patient tolerated the procedure we ll with no immediate perioperative complications. FINDINGS: Esophagus: Normal appearing mucosa was seen in the proximal, mid and distal esophagus. There was no evidence of erosions, ulcerations, mass lesions or active/recent bleeding and both the diaphragmatic pinch and GE junction were well seen at approximately 45 cm past the incisors. Stomach: Mild mucosal erythema in a mosaic pattern was seen in the gastric, cardia, fundus and body with no associated erosions, ulcerations or active/recent bleeding. Normal appearing mucosa was seen in the gastric antrum and at the incisura. Again, there was no evidence of erosions, ulcerations, m ass lesions or active/recent bleeding seen throughout the entire stomach. Duodenum: Normal appearing mucosa was seen in both the duodenal bulb and second portion of the duode num. There was no evidence of erosions, ulcerations, mass lesions or active/recent bleeding. IMPRESSION: 1. Nonspecific mild gastropathy seen in the gastric cardia, fundus, and body of unclear etiology. 2. Otherwise, normal upper endoscopy. 3. No etiology for patient's abdominal pain, nausea, vomiting was seen during this examination. RECOMMENDATIONS: 1. The patient to follow up with General Surgery service for laparoscopic cholecystectomy later on t myrna as a source of his abdominal pain and nausea and vomiting. 2. We would continue to monitor the patient's LFTs daily in light of cholecystitis and/or possible d rug induced liver injury. 3. We will continue patient on pantoprazole 40 mg b.i.d. given nonspecific gastropathy seen during u pper endoscopy today. 4. We would continue with as needed antiemetic support as you are doing. We will continue to follow. Please call with any questions.
[2017-08-05] MEDS: NPH, Human Insulin Isophane 300 UNIT/3 ML VIAL SC SCH (21:04)
[2017-08-05] MEDS: Lisinopril 5 MG TAB PO SCH (21:05)
[2017-08-05] MEDS: Metoprolol Tartrate 25 MG TAB PO SCH (21:05)
--- NOTE | 2017-08-06 02:22 | OP ---
DATE OF PROCEDURE: 08/05/2017 PREOPERATIVE DIAGNOSES: Chronic cholecystitis, cholelithiasis, history of cholestasis, history of micah wel obstructions, history of right inguinal hernia repair, history of ventral hernia repair, supraumb ilical. POSTOPERATIVE DIAGNOSES: Chronic cholecystitis, cholelithiasis, history of cholestasis, history of b owel obstructions, history of right inguinal hernia repair, history of ventral hernia repair, supraum bilical. PROCEDURES: Laparoscopic video cholecystectomy, normal cholangiogram. He is on fluoroscopy less alexys n one minute (on the same anesthesia, Dr. Merritt performed upper endoscopy, which was normal). SURGEON: Itz Hurley M.D. ANESTHESIA: General anesthesia, Local of 0.5% Marcaine with epinephrine 30 mL. PROCEDURE IN DETAIL: The patient was taken to the operating room where under general anesthesia cedte r Dr. Merritt performed upper endoscopy. Abdomen was clipped of hair, prepared with ChloraPrep, draped in routine fashion. Local anesthetic infiltrated into the skin and subcutaneous tissue about the op erative sites. Infraumbilical incision made. Pneumoperitoneum to 15 mmHg obtained the Veress needle , replacing it with a 5-port laparoscope inserted. Right subxiphoid incision made and 11-port placed . Right subcostal incision made, mid clavicular, anterior axillary lines, and 5 ports placed. Liver appeared to be normal without cirrhosis. Fundus of the gallbladder wall was slightly thickened, sli ghtly edematous. Fundus of gallbladder grasped at the cephalad. Infundibulum grasped right lateral and cystic artery and duct dissected free. Critical view obtained. Cystic artery double clipped pro ximally, divided. Cystic ducts then clipped on the gallbladder side. Opening made in the cystic elizabeth t, cholangiocath inserted, and cholangiogram was obtained using fluoroscopy revealing free flow of co ntrast into the duodenum without filling defects. It was small in caliber. Cholangiocatheter remove d. Cystic duct doubly-clipped and divided. Gallbladder dissected free from liver bed obtaining good hemostasis prior to division of final peritoneal attachments. Gallbladder and contents removed, sub mitted to Pathology. Good hemostasis ensured in the gallbladder bed. Attention was then turned lapa roscopically to the lower abdomen. I then identified the cecum, terminal ileum, and then it was bernard ed proximal as far as possible and noting normal small bowel without obstruction. There were some om ental adhesions into the pelvis, some of these were taken down with LigaSure, but not all were taken down, they were not provided any obstruction. Patient tolerated the procedure well. All instruments removed as irrigant and pneumoperitoneum evacuated. All instruments removed and all skin incisions approximated with interrupted subdermal 4-0 Monocryl and DermaGlue applied. If patient experiences a bowel obstruction in the future, a more aggressive adhesiolysis can be under taken, but what I appreciated today during his laparoscopy, there were no adhesions causing bowel obs truction.
[2017-08-06 07:56] VITALS: TEMP 98.4
[2017-08-06] MEDS ORDERED: metFORMIN 500 MG TAB PO SCH (08:00)
[2017-08-06] MEDS: Lisinopril 5 MG TAB PO SCH (08:33)
[2017-08-06] MEDS: Metoprolol Tartrate 25 MG TAB PO SCH (08:33)
[2017-08-06] MEDS: NPH, Human Insulin Isophane 300 UNIT/3 ML VIAL SC SCH (08:34)
--- NOTE | 2017-08-06 13:02 | PDOC.PN ---
- Subjective Encounter Start Date: 08/06/17 Encounter Start Time: 07:30 Subjective: no nausea or vomiting -: is tolerating solid diet -: amb in room - Objective Resuscitation Status: Resuscitation Status FULL:Full Resuscitation MAR Reviewed: Yes Vital Signs & Weight: Vital Signs (12 hours) Temp Pulse Resp BP BP Pulse Ox 08/06/17 08:33 78 125/74 08/06/17 08:00 98.4 F 78 18 08/06/17 07:55 98.4 F 78 18 125/74 92 L 08/06/17 04:43 98.5 F 77 16 134/61 93 L Weight Admit Weight 170 lb Weight 170 lb I&O: 08/05/17 08/06/17 08/07/17 06:59 06:59 06:59 Intake Total 2131 1320 Output Total 30 Balance 2101 1320 Result Diagrams: 08/04/17 05:20 08/05/17 04:25 Additional Labs: Accuchecks 08/06/17 08/06/17 08/05/17 10:42 05:44 21:05 POC Glucose 277 H 133 H 140 H 08/05/17 20:18 POC Glucose 149 H Phys Exam - Physical Examination HEENT: PERRLA, moist MMs Neck: no JVD, supple Respiratory: no wheezing, no rales Cardiovascular: RRR, no significant murmur Gastrointestinal: soft, no distention, positive bowel sounds Musculoskeletal: no edema, pulses present Neurological: non-focal, moves all 4 limbs Psychiatric: normal affect, A&O x 3 Dx/Plan (1) Acute cholecystitis Code(s): K81.0 - ACUTE CHOLECYSTITIS Status: Acute Comment: s/p robson cardozo (2) DM type 2 (diabetes mellitus, type 2) Status: Chronic Qualifiers: Diabetes mellitus filter machine operator insulin use: with filter machine operator use Diabetes mellitus complication status: with unspecified complications Qualified Code(s) : E11.8 - Type 2 diabetes mellitus with unspecified complications; Z79.4 - halfway (current) use of insulin; Z79.4 - halfway (current) use of insulin; Z79.4 - deputy chief magistrate (current) use of insulin; Z79.4 - deputy chief magistrate (current) use of insulin (3) Dehydration Code(s): E86.0 - DEHYDRATION Status: Resolved (4) Dyslipidemia Code(s): E78.5 - HYPERLIPIDEMIA, UNSPECIFIED Status: Chronic (5) Hypertension Code(s): I10 - ESSENTIAL (PRIMARY) HYPERTENSION Status: Chronic Qualifiers: Hypertension type: essential hypertension Qualified Code(s): I10 - Essential (primary) hypertension - Plan hemostable -: dc pt home -: to f/u with as adv and pcp in 1 week * .
[2017-08-06 19:16] VITALS: BP 140/79
--- NOTE | 2017-08-06 20:32 | EKG ---
Test Reason : PRE-OP Blood Pressure : / mmHG Vent. Rate : 083 BPM Atrial Rate : 083 BPM P-R Int : 148 ms QRS Dur : 100 ms QT Int : 380 ms P-R-T Axes : 065 002 033 degrees QTc Int : 446 ms Normal sinus rhythm Normal ECG When compared with ECG of 23-JUL-2017 00:10, Incomplete right bundle branch block is no longer Present Confirmed by NANCY MESSINA, STiana (4) on 08/06/2017 8:32:09 PM Referred By: MAURO Confirmed By:DR. Kelli CRUZ MD
--- NOTE | 2017-08-06 23:07 | DIS ---
DATE OF ADMISSION: 08/03/2017 DATE OF DISCHARGE: 08/07/2017 DISCHARGE DISPOSITION: To home. PRIMARY DISCHARGE DIAGNOSES: Abdominal pain secondary to chronic cholecystitis, status post laparosc opic cholecystectomy. SECONDARY DISCHARGE DIAGNOSES: Diabetes mellitus type 2, dehydration, hypertension, dyslipidemia. PROCEDURES DONE DURING HOSPITALIZATION: Chest x-ray done showed mild pulmonary vascular congestion. CT of the abdomen and pelvis with contrast done showed distal esophageal abnormal thickening concern ing for esophagitis, small bowel dilatation concerning for ileus/bowel obstruction, some air fluid le vels seen in the colon with collection of stools in the rectum. This may represent possible fecal im paction. There was moderate distention of the stomach. Upper endoscopy done by Dr. Ugo Merritt sandrita wed nonspecific mild gastropathy seen in the gastric cardia, fundus, and body of unclear etiology. Anai bolaños has had laparoscopic cholecystectomy done by Dr. Hurley on 08/05/2017. Discharge H&H 12 and 3 6, platelet count 238. Discharge AST and ALT levels are 22 and 37, alkaline phosphatase is 172, tota l bilirubin 1.9. All these were on the . DISCHARGE MEDICATIONS: Protonix 40 mg p.o. twice daily, Motrin 600 mg p.o. q.6 hourly p.r.n., lisino pril 5 mg twice daily, metformin 500 mg p.o. twice daily, Lopressor 25 mg p.o. twice daily, NPH insul in 10 units subcutaneously twice daily. ALLERGIES: No known drug allergies. INPATIENT CONSULTS: Dr. Hurley for General Surgery, Dr. Ugo Merritt/Dr. Lenny Wyman for gastroent erology. DISCHARGE PLAN: Patient to follow up with primary care physician in one week and Dr. Hurley as advis ed. BRIEF COURSE DURING HOSPITALIZATION: Patient initially got admitted on the after he was recentl y discharged. He had come back with complaints of abdominal pain, nausea, and vomiting. He was diag nosed with small-bowel obstruction during his last hospitalization and was on full-liquid diet then. He has had consultation with Dr. Hurley for general surgery and Dr. Danial Wyman/Dr. Uog Merritt f or Gastroenterology. Patient had upper endoscopy done, which showed findings of nonspecific gastriti s. In view of elevated liver enzymes, he has had laparoscopic cholecystectomy done with operative fi ndings of chronic cholecystitis. His abdominal pain is resolved. Patient is tolerating solid diet. He is otherwise hemodynamically stable and will be shortly discharged home if okay with Gastroentero logy. Patient is to follow up with Dr. Hurley as advised.
== END 2017-08-06 12:21 | disposition home or self-care (01) | DRG 419 ==
LOC: ERS 11:45 → T4-B 18:30
PROVIDERS: ADMIT Family Medicine; ATTEND Family Medicine
PROC: 0D9670Z Drainage of Stomach with Drainage Device, Via Natural or Artificial Opening (ICD-10-PCS; 2017-08-03)
PROC: 0FT44ZZ Resection of Gallbladder, Percutaneous Endoscopic Approach (ICD-10-PCS; principal; 2017-08-05)
PROC: BF10YZZ Fluoroscopy of Bile Ducts using Other Contrast (ICD-10-PCS; 2017-08-05)
PROC: 0DJ08ZZ Inspection of Upper Intestinal Tract, Via Natural or Artificial Opening Endoscopic (ICD-10-PCS; 2017-08-05)
DX: K80.10 Calculus of gallbladder with chronic cholecystitis without obstruction (principal); K56.41 Fecal impaction; I10 Essential (primary) hypertension; Z79.82 Long term (current) use of aspirin; Z79.4 Long term (current) use of insulin; E83.52 Hypercalcemia; E11.65 Type 2 diabetes mellitus with hyperglycemia; K82.8 Other specified diseases of gallbladder; K31.9 Disease of stomach and duodenum, unspecified; E78.5 Hyperlipidemia, unspecified; E86.0 Dehydration
CPT/HCPCS: 36415; 36416; 71045; 74022; 74177; 80053; 81003; 81015; 83036; 83605; 85025; 88304; 93005; 93010; A4216; C9113; J0131; J0670; J1610; J1815; J1885; J1956; J2001; J2405; J2704; J3010; Q0162; Q9961; S0028